=== PATIENT | female | born 1995 | race Caucasian/White ===

== ENCOUNTER 2018-08-08 20:45 | Outpatient (CLI) | payer MEDICAID | END 2018-08-08 20:46 | disposition critical access hospital (66) | LOC: EMS 20:45 | PROVIDERS: ATTEND Surgery | DX: R45.89 Other symptoms and signs involving emotional state (principal); X31.XXXA Exposure to excessive natural cold, initial encounter; Y92.413 State road as the place of occurrence of the external cause | CPT/HCPCS: A0425; A0429; A0999 ==

== ENCOUNTER 2018-08-08 21:15 | Emergency (ER) | payer MEDICAID ==
--- NOTE | 2018-08-08 21:27 | ED Physician Documentation ---
PD HPI MHE - Stated complaint Stated Complaint: SI - History obtained from History obtained from: Patient, Family, EMS - History of Present Illness Primary symptom: Suicidal ideation, Depression Timing - onset: Today Contributing factors: Other (had misscarriage and today was the due date.) Similar symptoms before: Diagnosis (depression) Recently seen: Not recently seen - Additional information Additional information: 23-year-old female went out to a spot near [facility] where she will frequently sit on a ledge to think. She went there today with the intention to jump and commit suicide. She brought some papers with her that she had written notes onto her boyfriend. She indicates that the trigger for her suicidal ideation this evening is the due date of a fetus which was miscarried. She states that she has depression she is treated for depression and that she has had suicidal ideation previously but has never acted on it. Today while she was sitting on the ledge she went to pull her boyfriend's ring off her hand and when she did this she slipped and slid down an embankment. She was unable to get back up from the embankment clawing at the dirt and [place] on the rock and breaking trees off. She was eventually helped up by the police officers. She states that now she is no longer suicidal. Review of Systems Constitutional: denies: Fever, Chills Eyes: denies: Decreased vision Ears: denies: Ear pain Nose: reports: Congestion. denies: Rhinorrhea / runny nose Throat: denies: Sore throat Cardiac: denies: Chest pain / pressure, Palpitations Respiratory: reports: Cough. denies: Dyspnea GI: denies: Abdominal Pain, Nausea, Vomiting : denies: Dysuria, Frequency Skin: denies: Rash Musculoskeletal: denies: Neck pain, Back pain, Extremity pain Neurologic: denies: Generalized weakness, Focal weakness, Numbness PD PAST MEDICAL HISTORY - Present Medications Home Medications: Ambulatory Orders Medication Instructions Recorded Confirmed Buspirone HCl 1 tab PO TID 08/09/18 08/09/18 Glipizide 1 tab PO BID 08/09/18 08/09/18 Metformin HCl 500 mg PO TID 08/09/18 08/09/18 Sertraline HCl 1 tab PO DAILY 08/09/18 08/09/18 - Allergies Allergies/Adverse Reactions: Allergies Allergy/AdvReac Type Severity Reaction Status Date / Time No Known Drug Allergies Allergy Verified 08/08/18 21:27 PD ED PE NORMAL - Vitals Vital signs reviewed: Yes (tachy and hypertensive ) - General General: Alert and oriented X 3, No acute distress, Well developed/nourished - HEENT HEENT: Atraumatic, PERRL, EOMI - Neck Neck: Supple, no meningeal sign, No bony TTP - Cardiac Cardiac: RRR, No murmur - Respiratory Respiratory: No respiratory distress, Clear bilaterally - Abdomen Abdomen: Soft, Non tender - Back Back: No CVA TTP, No spinal TTP - Derm Derm: Normal color, Warm and dry, No rash - Extremities Extremities: No deformity, No edema - Neuro Neuro: Alert and oriented X 3, jewelry sales 2-12 intact, No motor deficit, No sensory deficit, Normal speech Eye Opening: Spontaneous Motor: Obeys Commands Verbal: Oriented GCS Score: 15 - Psych Psych: Other (mood is anxious and the affect is flat ) Results - Vitals Vitals: Oxygen O2 Source Room air - Labs Labs: Microbiology 08/08/18 21:30 Urine Culture - Preliminary Urine,Clean Catch Laboratory Tests 08/08/18 08/08/18 08/08/18 21:30 21:30 21:30 WBC 8.7 RBC 5.29 Hgb 12.7 Hct 38.7 MCV 73.1 L MCH 24.0 L MCHC 32.8 RDW 15.1 H Plt Count 226 MPV 9.7 Neut # (Auto) 5.7 Lymph # (Auto) 2.1 [place] # (Auto) 0.7 Eos # (Auto) 0.1 Baso # (Auto) 0.0 Absolute Nucleated RBC 0.01 Nucleated RBC % 0.2 Sodium 134 L Potassium 3.8 Chloride 102 Carbon Dioxide 21 Anion Gap 11.0 BUN 13 Creatinine 0.5 Estimated GFR (MDRD) 150 Glucose 243 H Calcium 9.1 Total Bilirubin < 0.2 L AST 41 ALT 45 Alkaline Phosphatase 65 Troponin I < 0.04 Total Protein 8.2 Albumin 3.9 Globulin 4.3 H Albumin/Globulin Ratio 0.9 L Lipase 25 Urine Color Urine Clarity Urine pH Ur Specific [place] Urine Protein Urine Glucose (UA) Urine Ketones Urine Occult Blood Urine Nitrite Urine Bilirubin Urine Urobilinogen Ur Leukocyte Esterase Urine RBC Urine WBC Ur Squamous Epith Cells Urine Bacteria Urine Casts Ur Microscopic Review Urine Culture Comments Urine HCG, Qual Salicylates < 6.0 Urine Opiates Screen Ur Oxycodone Screen Urine Methadone Screen Ur Propoxyphene Screen Acetaminophen < 10 L Ur Barbiturates Screen Ur Tricyclics Screen Ur Phencyclidine Scrn Ur Amphetamine Screen U Methamphetamines Scrn U Benzodiazepines Scrn Urine Cocaine Screen U Cannabinoids Screen Ethyl Alcohol < 5.0 08/08/18 08/08/18 21:30 21:30 WBC RBC Hgb Hct MCV MCH MCHC RDW Plt Count MPV Neut # (Auto) Lymph # (Auto) Edwards # (Auto) Eos # (Auto) Baso # (Auto) Absolute Nucleated RBC Nucleated RBC % Sodium Potassium Chloride Carbon Dioxide Anion Gap BUN Creatinine Estimated GFR (MDRD) Glucose Calcium Total Bilirubin AST ALT Alkaline Phosphatase Troponin I Total Protein Albumin Globulin Albumin/Globulin Ratio Lipase Urine Color YELLOW Urine Clarity HAZY Urine pH 6.5 Ur Specific [place] 1.025 Urine Protein 100 H Urine Glucose (UA) 250 H Urine Ketones TRACE Urine Occult Blood NEGATIVE Urine Nitrite POSITIVE H Urine Bilirubin NEGATIVE Urine Urobilinogen 0.2 (NORMAL) Ur Leukocyte Esterase NEGATIVE Urine RBC 0-5 Urine WBC 0-3 Ur Squamous Epith Cells RARE Squamous Urine Bacteria Many H Urine Casts 3-5 Hyaline Casts Ur Microscopic Review INDICATED Urine Culture Comments INDICATED Urine HCG, Qual NEGATIVE Salicylates Urine Opiates Screen NEGATIVE Ur Oxycodone Screen NEGATIVE Urine Methadone Screen NEGATIVE Ur Propoxyphene Screen NEGATIVE Acetaminophen Ur Barbiturates Screen NEGATIVE Ur Tricyclics Screen NEGATIVE Ur Phencyclidine Scrn NEGATIVE Ur Amphetamine Screen NEGATIVE U Methamphetamines Scrn NEGATIVE U Benzodiazepines Scrn NEGATIVE Urine Cocaine Screen NEGATIVE U Cannabinoids Screen POSITIVE H Ethyl Alcohol PD MEDICAL DECISION MAKING - ED course Complexity details: reviewed results, re-evaluated patient, considered differential, d/w patient, d/w family ED course: 23-year-old female with a history of depression and acute suicidal ideation today revolving around a due date of a miscarriage fetus. On arrival to the emergency department the patient appears anxious and she is remorseful and relieved. She did struggle to try to crawl back up an embankment that she had slid down and while she was doing this she had the realization that she did not want to commit suicide. We did invoke tele-psych and the reporting psychiatrist recommends hospitalization. The patient adamantly believe she does not need to be in the hospital and wants to go home. We did discuss cooperation and evaluation by the geriatric social work professor in the morning with the possibility of parviz for safety. The patient was mostly concerned that an involuntary treatment would result in some permanent consequences for her. She will not require involuntary treatment ulness she becomes uncooperative. Departure - Departure Disposition: 01 Home, Self Care Clinical Impression: Suicidal ideation Depression Qualifiers: Depression Type: major depressive disorder Major depression recurrence: recurrent Active/Remission status: currently active Major depression episode severity: moderate Qualified Code(s): F33.1 - Major depressive disorder, recurrent, moderate Condition: Stable Instructions: ED Depression Comments: Follow-up with your primary care and with counseling at the direction of the geriatric social work professor. Continue usual medications. Discharge Date/Time: 08/09/18 11:43
[2018-08-08 21:41] LABS: BASOPHILS % (AUTO) 0.5 %; EOSINOPHILS # (AUTO) 0.1 10^3/uL (0.0-0.7); EOSINOPHILS % (AUTO) 1.2 %; HGB - HEMOGLOBIN 12.7 g/dL (12.0-16.0); LYMPHOCYTES # (AUTO) 2.1 10^3/uL (1.5-3.5); LYMPHOCYTES % (AUTO) 24.2 %; MEAN CORPUSCULAR HGB CONC 32.8 g/dL (32.0-36.0); MEAN CORPUSCULAR VOLUME 73.1 fL (81.0-99.0); MEAN PLATELET VOLUME 9.7 fL (7.9-10.8); MONOCYTES # (AUTO) 0.7 10^3/uL (0.0-1.0); MONOCYTES % (AUTO) 8.3 %; MUDS CUTOFF CONCENTRATIONS CUTOFF CONC BELOW:; NEUTROPHILS # (AUTO) 5.7 10^3/uL (1.5-6.6); NEUTROPHILS % (AUTO) 65.8 %; PLT - PLATELET COUNT 226 10^3/uL (130-450); RED BLOOD COUNT 5.29 10^6/uL (4.20-5.40); RED CELL DISTRIBUTION WIDTH 15.1 % (12.0-15.0); WHITE BLOOD COUNT 8.7 x10^3/uL (4.8-10.8)
[2018-08-08 21:47] LABS: BILIRUBIN,URINE NEGATIVE (NEGATIVE); CLARITY,URINE HAZY (CLEAR); GLUCOSE, URINE (UA) 250 mg/dL (NEGATIVE); KETONES,URINE (UA) TRACE mg/dL (NEGATIVE); LEUKOCYTE ESTERASE, URINE NEGATIVE (NEGATIVE); NITRITE,URINE POSITIVE (NEGATIVE); OCCULT BLOOD,URINE NEGATIVE (NEGATIVE); PH,URINE 6.5 PH (5.0-7.5); PROTEIN,URINE 100 mg/dL (NEGATIVE); UROBILINOGEN,URINE 0.2 (NORMAL) E.U./dL (NORMAL)
[2018-08-08 21:49] LABS: HCG UR QUAL NEGATIVE
[2018-08-08 22:03] LABS: AMPHETAMINE SCREEN,URINE NEGATIVE (NEGATIVE); BENZODIAZEPINES SCREEN, URINE NEGATIVE (NEGATIVE); COCAINE SCREEN URINE NEGATIVE (NEGATIVE); METHADONE SCREEN, URINE NEGATIVE (NEGATIVE); METHAMPHETAMINES SCREEN, URINE NEGATIVE (NEGATIVE); OPIATE SCREEN, URINE NEGATIVE (NEGATIVE); OXYCODONE SCREEN, URINE NEGATIVE (NEGATIVE); PROPOXYPHENE SCREEN, URINE NEGATIVE (NEGATIVE); TRICYCLIC ANTIDEPRESSANT,URINE NEGATIVE (NEGATIVE)
[2018-08-08 22:17] LABS: ACETAMINOPHEN < 10 ug/mL (10-30); ALBUMIN 3.9 g/dL (3.2-5.5); ALBUMIN/GLOBULIN RATIO 0.9 (1.0-2.2); ALKALINE PHOSPHATASE 65 IU/L (42-121); ALT ALANINE AMINOTRANSFERASE 45 IU/L (10-60); AST ASPARTATE AMINOTRANSFERASE 41 IU/L (10-42); BILIRUBIN,TOTAL < 0.2 mg/dL (0.2-1.0); BUN - BLOOD UREA NITROGEN 13 mg/dL (6-20); CALCIUM 9.1 mg/dL (8.5-10.3); CARBON DIOXIDE - CO2 21 mmol/L (21-32); CHLORIDE 102 mmol/L (101-111); CREATININE 0.5 mg/dL (0.4-1.0); GFR - MDRD 150 (>89); GLUCOSE 243 mg/dL (70-100); LIPASE 25 U/L (22-51); SALICYLATE < 6.0 mg/dL; SODIUM 134 mmol/L (135-145); TOTAL PROTEIN 8.2 g/dL (6.7-8.2)
[2018-08-08 22:19] LABS: BACTERIA,URINE Many /HPF (None Seen); CASTS, URINE 3-5 Hyaline Casts /LPF; RBC,URINE 0-5 /HPF (0-5); SQUAMOUS EPITHELIAL CELL,UR RARE Squamous (<= Few)
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
[2018-08-09] MEDS ORDERED: glipiZIDE 5 MG TABLET PO STA ×2 (04:04→10:52)
[2018-08-09] MEDS ORDERED: metFORMIN 500 MG TABLET PO STA ×2 (04:05→10:50)
[2018-08-09] MEDS ORDERED: BENZONATATE 100 MG CAPSULE PO STA (04:05)
[2018-08-09 04:49] VITALS: BP 130/60
[2018-08-09] MEDS ORDERED: busPIRone 5 MG TABLET PO STA ×3 (05:35→10:53)
[2018-08-09] MEDS ORDERED: busPIRone 5 MG TABLET PO ONE (06:06)
--- NOTE | 2018-08-09 09:16 | ED Physician Documentation ---
ED Addendum - Addendum Addendum: 08/09/18 09:15 There were 2 consultations for social work on this chart. 1 of them is correct. The one was inadvertently placed intended for another patient. Please disregard the notations about heroin and meth abuse as this does not refer to this patient. Social work is looking at counseling and close follow-up for the patient in lieu of hospitalization and will review the plan prior to disposition.
[2018-08-09] MEDS ORDERED: IBUPROFEN 400 MG TABLET PO STA (10:31)
[2018-08-09] MEDS ORDERED: SERTRALINE 50 MG TABLET PO STA (10:52)
== END 2018-08-09 11:43 | disposition home or self-care (01) ==
LOC: EDUNIT# → ED 21:15
DX: R45.851 Suicidal ideations (principal); F33.1 Major depressive disorder, recurrent, moderate; E11.9 Type 2 diabetes mellitus without complications; Z81.8 Family history of other mental and behavioral disorders
CPT/HCPCS: 36415; 80053; 80306; 80307; 80320; 80329; 81001; 81025; 83690; 84484; 85025; 87077; 87086; 87181; 99284; A9270; G0425; Q3014; 81003

== ENCOUNTER 2018-09-04 11:22 | Outpatient (CLI) | payer MEDICAID ==
[2018-09-04 19:18] LABS: BASOPHILS % (AUTO) 0.3 %; EOSINOPHILS # (AUTO) 0.2 10^3/uL (0.0-0.7); EOSINOPHILS % (AUTO) 2.2 %; HGB - HEMOGLOBIN 12.3 g/dL (12.0-16.0); LYMPHOCYTES # (AUTO) 3.2 10^3/uL (1.5-3.5); LYMPHOCYTES % (AUTO) 30.2 %; MEAN CORPUSCULAR HGB CONC 31.9 g/dL (32.0-36.0); MEAN CORPUSCULAR VOLUME 75.1 fL (81.0-99.0); MEAN PLATELET VOLUME 10.6 fL (7.9-10.8); MONOCYTES # (AUTO) 0.5 10^3/uL (0.0-1.0); MONOCYTES % (AUTO) 4.9 %; NEUTROPHILS # (AUTO) 6.7 10^3/uL (1.5-6.6); NEUTROPHILS % (AUTO) 62.4 %; PLT - PLATELET COUNT 237 10^3/uL (130-450); RED BLOOD COUNT 5.12 10^6/uL (4.20-5.40); RED CELL DISTRIBUTION WIDTH 15.6 % (12.0-15.0); WHITE BLOOD COUNT 10.7 x10^3/uL (4.8-10.8)
[2018-09-04 19:32] LABS: ALBUMIN 3.8 g/dL (3.2-5.5); ALKALINE PHOSPHATASE 58 IU/L (42-121); ALT ALANINE AMINOTRANSFERASE 47 IU/L (10-60); AST ASPARTATE AMINOTRANSFERASE 35 IU/L (10-42); BILIRUBIN,TOTAL 0.4 mg/dL (0.2-1.0); BUN - BLOOD UREA NITROGEN 16 mg/dL (6-20); CARBON DIOXIDE - CO2 23 mmol/L (21-32); CHLORIDE 99 mmol/L (101-111); CHOL/HDL RATIO 4.2 (<4.4); CHOLESTEROL 184 mg/dL; CREATININE 0.3 mg/dL (0.4-1.0); GFR - MDRD 271 (>89); GLUCOSE 292 mg/dL (70-100); HDL CHOLESTEROL 44 mg/dL; LDL CHOLESTEROL,CALCULATED 84 mg/dL; LDL/HDL RATIO 1.9 (<4.4); SODIUM 131 mmol/L (135-145); TOTAL PROTEIN 7.7 g/dL (6.7-8.2); VLDL CHOLESTEROL 56 mg/dL
[2018-09-04 19:37] LABS: HB2 TOTAL 13.2 g/dL; HEMOGLOBIN A1C 1.28 g/dL
[2018-09-04 19:43] LABS: THYROID STIMULATING HORMONE 2.15 uIU/mL (0.34-5.60)
[2018-09-04 19:47] LABS: CREATININE,URINE 63.7 mg/dL; MICROALBUMIN,URINE 2.1 mg/dL (0-300.0)
[2018-09-04 19:53] LABS: FOLATE 10.96 ng/mL (5.90 - >24.8)
== END 2018-09-04 23:59 | disposition home or self-care (01) ==
LOC: LAB.N 11:22
PROVIDERS: ATTEND Nurse Practitioner
DX: E55.9 Vitamin D deficiency, unspecified (principal); R53.83 Other fatigue
CPT/HCPCS: 36415; 80050; 80061; 82043; 82306; 82570; 82607; 82746; 83036; 83721

== ENCOUNTER 2018-11-11 22:39 | Emergency (ER) | payer MEDICAID ==
[2018-11-12 00:29] LABS: BASOPHILS # (AUTO) 0.1 10^3/uL (0.0-0.1); BASOPHILS % (AUTO) 0.7 %; EOSINOPHILS # (AUTO) 0.2 10^3/uL (0.0-0.7); EOSINOPHILS % (AUTO) 1.4 %; LYMPHOCYTES # (AUTO) 4.1 10^3/uL (1.5-3.5); LYMPHOCYTES % (AUTO) 33.5 %; MEAN CORPUSCULAR HEMOGLOBIN 24.1 pg (27.0-31.0); MEAN CORPUSCULAR HGB CONC 32.1 g/dL (32.0-36.0); MEAN PLATELET VOLUME 9.6 fL (7.9-10.8); MONOCYTES # (AUTO) 0.5 10^3/uL (0.0-1.0); MONOCYTES % (AUTO) 4.1 %; NEUTROPHILS # (AUTO) 7.4 10^3/uL (1.5-6.6); NEUTROPHILS % (AUTO) 60.3 %; PLT - PLATELET COUNT 342 10^3/uL (130-450); RED BLOOD COUNT 5.39 10^6/uL (4.20-5.40); RED CELL DISTRIBUTION WIDTH 14.8 % (12.0-15.0); WHITE BLOOD COUNT 12.3 x10^3/uL (4.8-10.8)
[2018-11-12 00:40] LABS: ALBUMIN/GLOBULIN RATIO 0.9 (1.0-2.2); BILIRUBIN,TOTAL 0.5 mg/dL (0.2-1.0); CREATININE 0.5 mg/dL (0.4-1.0); TOTAL PROTEIN 8.3 g/dL (6.7-8.2)
[2018-11-12 01:21] LABS: BILIRUBIN,URINE NEGATIVE (NEGATIVE); GLUCOSE, URINE (UA) NEGATIVE (NEGATIVE); KETONES,URINE (UA) TRACE mg/dL (NEGATIVE); LEUKOCYTE ESTERASE, URINE NEGATIVE (NEGATIVE); NITRITE,URINE NEGATIVE (NEGATIVE); OCCULT BLOOD,URINE NEGATIVE (NEGATIVE); PH,URINE 6.5 PH (5.0-7.5); PROTEIN,URINE 30 mg/dL (NEGATIVE); UROBILINOGEN,URINE 0.2 (NORMAL) E.U./dL (NORMAL)
[2018-11-12 01:23] LABS: CLARITY,URINE CLEAR (CLEAR); HCG UR QUAL NEGATIVE
[2018-11-12 01:38] LABS: BACTERIA,URINE Rare /HPF (None Seen); RBC,URINE None Seen /HPF (0-5); SQUAMOUS EPITHELIAL CELL,UR FEW Squamous (<= Few)
[2018-11-12] MEDS ORDERED: cefUROXime axetil 250 MG TABLET PO STA (01:48)
[2018-11-12] MEDS ORDERED: MAG HYDROX/AL HYDROX/SIMETH 30 ML UDC PO STA (02:30)
[2018-11-12] MEDS ORDERED: LIDOCAINE VISCOUS 2% 15 ML UDC MM STA (02:30)
--- NOTE | 2018-11-12 02:31 | ED Physician Documentation ---
PD HPI ABD PAIN - Stated complaint Stated Complaint: ABD PX/NAUSEA - Chief complaint Chief Complaint: Abd Pain - History obtained from History obtained from: Patient - History of Present Illness Timing - onset: Today Timing - duration: Hours Timing - details: Abrupt onset, Still present Quality: Sharp, Pain Location: RUQ, Epigastric Improved by: Laying still, Vomiting Worsened by: Moving, Breathing, Position, Palpation Associated symptoms: Nausea, Vomiting Similar symptoms before: No diagnosis Recently seen: Not recently seen - Additional information Additional information: Previously well 23-year-old female has developed acute right upper quadrant abdominal pain after eating pizza today. She states that the pain is been severe and is lasted most of the day today and she is come in for evaluation. She states that previously she has had episodes of this pain that have resolved in several hours. Review of Systems Constitutional: denies: Fever Eyes: denies: Decreased vision Ears: denies: Ear pain Nose: denies: Congestion Throat: denies: Sore throat Cardiac: denies: Chest pain / pressure Respiratory: denies: Dyspnea, Cough GI: reports: Abdominal Pain, Nausea, Vomiting : denies: Dysuria, Frequency PD PAST MEDICAL HISTORY - Past Medical History Past Medical History: Yes Respiratory: Sleep apnea Endocrine/Autoimmune: Type 2 diabetes GI: Cholelithiasis PHYSICIAN VICE PRESIDENT: None : None Psych: Depression, Anxiety Musculoskeletal: None Derm: Eczema - Past Surgical History Past Surgical History: No - Present Medications Home Medications: Ambulatory Orders Medication Instructions Recorded Confirmed Buspirone HCl 1 tab PO TID 08/09/18 08/09/18 Glipizide 1 tab PO BID 08/09/18 08/09/18 Metformin HCl 500 mg PO TID 08/09/18 08/09/18 Sertraline HCl 1 tab PO DAILY 08/09/18 08/09/18 - Allergies Allergies/Adverse Reactions: Allergies Allergy/AdvReac Type Severity Reaction Status Date / Time No Known Drug Allergies Allergy Verified 11/11/18 22:51 - Social History Does the pt smoke?: No Smoking Status: Never smoker Does the pt drink ETOH?: Yes ETOH Use: Liquor Does the pt have substance abuse?: No Substance Use and Type: Marijuana - Immunizations Immunizations are current?: No Immunizations: TDAP current <10years - POLST Patient has POLST: No PD ED PE NORMAL - Vitals Vital signs reviewed: Yes (tachy and hypertensive ) - General General: Alert and oriented X 3, No acute distress, Well developed/nourished - HEENT HEENT: Atraumatic, PERRL, EOMI - Neck Neck: Supple, no meningeal sign - Cardiac Cardiac: RRR, No murmur - Respiratory Respiratory: No respiratory distress, Clear bilaterally - Abdomen Abdomen: Soft, Other (mild RUQ tenderness with epigastric tenderness worse. ) - Back Back: No CVA TTP, No spinal TTP - Derm Derm: Normal color, Warm and dry, No rash - Extremities Extremities: No deformity, No edema - Neuro Neuro: Alert and oriented X 3, cigarette lighter repairer 2-12 intact, No motor deficit, No sensory deficit, Normal speech Eye Opening: Spontaneous Motor: Obeys Commands Verbal: Oriented GCS Score: 15 - Psych Psych: Normal mood, Normal affect Results - Vitals Vitals: Vital Signs - 24 hr 11/11/18 11/12/18 11/12/18 22:45 00:51 02:51 Temperature 36.5 C 36.4 C L Heart Rate 102 H 98 101 H Respiratory 18 22 18 Rate Blood Pressure 146/100 H 141/98 H 139/96 H O2 Saturation 98 96 97 11/12/18 03:44 Temperature Heart Rate 80 Respiratory 18 Rate Blood Pressure 137/88 H O2 Saturation 99 Oxygen O2 Source Room air - Labs Labs: Laboratory Tests 11/12/18 11/12/18 11/12/18 00:25 00:25 01:15 WBC 12.3 H RBC 5.39 Hgb 13.0 Hct 40.4 MCV 75.0 L MCH 24.1 L MCHC 32.1 RDW 14.8 Plt Count 342 MPV 9.6 Neut # (Auto) 7.4 H Lymph # (Auto) 4.1 H [place] # (Auto) 0.5 Eos # (Auto) 0.2 Baso # (Auto) 0.1 Absolute Nucleated RBC 0.00 Nucleated RBC % 0.0 Sodium 137 Potassium 3.9 Chloride 99 L Carbon Dioxide 22 Anion Gap 16.0 H BUN 13 Creatinine 0.5 Estimated GFR (MDRD) 150 Glucose 214 H Calcium 10.0 Total Bilirubin 0.5 AST 45 H ALT 60 Alkaline Phosphatase 57 Total Protein 8.3 H Albumin 4.0 Globulin 4.3 H Albumin/Globulin Ratio 0.9 L Lipase 24 Urine Color YELLOW Urine Clarity CLEAR Urine pH 6.5 Ur Specific [place] 1.020 Urine Protein 30 H Urine Glucose (UA) NEGATIVE Urine Ketones TRACE Urine Occult Blood NEGATIVE Urine Nitrite NEGATIVE Urine Bilirubin NEGATIVE Urine Urobilinogen 0.2 (NORMAL) Ur Leukocyte Esterase NEGATIVE Urine RBC None Seen Urine WBC 0-3 Ur Squamous Epith Cells FEW Squamous Urine Bacteria Rare Ur Microscopic Review INDICATED Urine Culture Comments NOT INDICATED Urine HCG, Qual NEGATIVE PD MEDICAL DECISION MAKING - ED course Complexity details: reviewed old records, reviewed results, re-evaluated patient, considered differential, d/w patient ED course: 23-year-old female with epigastric pain I am not able to image her gallbladder with bedside ultrasound and she does not seem to have much in the way of pain associated with this examination. She does have epigastric pain and she is administered a GI cocktail consisting of 10 mL's of viscous lidocaine and 30 mils of Mylanta with prompt and complete relief of her pain. She is diagnosed with gastritis and instructed to use acid reducing medications and follow-up with her primary. Departure - Departure Disposition: 01 Home, Self Care Clinical Impression: Gastritis Qualifiers: Gastritis type: unspecified gastritis Chronicity: acute Gastritis bleeding: without bleeding Qualified Code(s): K29.00 - Acute gastritis without bleeding Condition: Stable Instructions: ED PUD Vs Gastritis Follow-Up: [facility] [Provider Group] Comments: Today it appears your stomach was a source of your pain and my recommendation is for you to begin taking a medication to reduce the acid in your stomach on a regular basis. Take Pepcid AC or Nexium. These are available [id number]. In addition talk to your primary care provider about a gallbladder ultrasound. Discharge Date/Time: 11/12/18 03:45
[2018-11-12 03:45] VITALS: BP 137/88
== END 2018-11-12 03:45 | disposition home or self-care (01) ==
LOC: ED 22:39
DX: K29.00 Acute gastritis without bleeding (principal); E11.9 Type 2 diabetes mellitus without complications; Z79.84 Long term (current) use of oral hypoglycemic drugs
CPT/HCPCS: 36415; 80053; 81001; 81025; 83690; 85025; 99283; A9270; 81003; 87086

== ENCOUNTER 2022-04-17 06:49 | Emergency (ER) | payer MEDICAID ==
[2022-04-17] MEDS ORDERED: SODIUM CHLORIDE 0.9% 1,000 ML IV STA ×2 (08:07→11:13)
[2022-04-17] MEDS ORDERED: KETOROLAC 30 MG/ML VIAL IVP STA ×2 (08:16→11:17)
[2022-04-17] MEDS ORDERED: ACETAMINOPHEN 325 MG TABLET PO STA (08:16)
--- NOTE | 2022-04-17 08:21 | ED Physician Documentation ---
History of Present Illness - Stated complaint Stated Complaint: ABD/NECK/CHEST PX - Chief complaint Chief Complaint: Cardiac - History obtained from History obtained from: Patient - Additonal information Additional information: Patient comes to the emergency department with chief complaint of upper abdominal pain and flank pain bilaterally for the last couple of weeks. However, the patient states is gotten a lot worse over the last 8 hours and she is not sleeping laying in bed. She states she feels as though she has a fever although she has not measured 1. No chills. No nausea or vomiting. She states she has a little dysuria. The patient states she is otherwise fairly healthy. No abdominal issues or prior surgeries. She states she does not think she is because she just finished her period. Review of Systems Ten Systems: 10 systems reviewed and negative Constitutional: reports: Reviewed and negative Eyes: reports: Reviewed and negative Ears: reports: Reviewed and negative Nose: reports: Reviewed and negative Throat: reports: Reviewed and negative Cardiac: reports: Reviewed and negative Respiratory: reports: Reviewed and negative GI: reports: Abdominal Pain : reports: Dysuria Skin: reports: Reviewed and negative Musculoskeletal: reports: Reviewed and negative Neurologic: reports: Headache Psychiatric: reports: Reviewed and negative Endocrine: reports: Reviewed and negative Immunocompromised: reports: Reviewed and negative PD PAST MEDICAL HISTORY - Past Medical History Respiratory: Sleep apnea Endocrine/Autoimmune: Type 2 diabetes GI: Cholelithiasis EMERGENCY MANAGEMENT SPECIALIST: None : None Psych: Depression, Anxiety Musculoskeletal: None Derm: Eczema - Past Surgical History Past Surgical History: No - Present Medications Home Medications: Ambulatory Orders Medication Instructions Recorded Confirmed Metformin HCl 500 mg PO TID 08/09/18 04/18/22 glipiZIDE [Glipizide] 1 tab PO BID 08/09/18 04/18/22 levoFLOXacin [Levaquin] 500 mg PO QD #28 tablet 04/17/22 04/18/22 - Allergies Allergies/Adverse Reactions: Allergies Allergy/AdvReac Type Severity Reaction Status Date / Time No Known Drug Allergies Allergy Verified 04/18/22 08:04 - Social History Does the pt smoke?: No Smoking Status: Never smoker Does the pt drink ETOH?: Yes Does the pt have substance abuse?: No - Immunizations Immunizations are current?: No Immunizations: TDAP current <10years - POLST Patient has POLST: No PD ED PE NORMAL - Vitals Vital signs reviewed: Yes - General General: Alert and oriented X 3, Well developed/nourished, Other (The patient is not in distress but does appear uncomfortable.) - HEENT HEENT: Atraumatic, PERRL, EOMI - Cardiac Cardiac: RRR, No murmur - Respiratory Respiratory: No respiratory distress, Clear bilaterally - Abdomen Abdomen: Soft, Non distended, Other (Moderate epigastric tenderness, no rebound or guarding. Bilateral flank tenderness, moderate) - Back Back: Other (CVA tenderness bilaterally left greater than right) - Derm Derm: Normal color, Warm and dry, No rash - Extremities Extremities: No deformity, No edema, No calf tenderness / cord - Neuro Neuro: Alert and oriented X 3, Other (Moderate epigastric tenderness, no rebound or guarding. Bilateral flank tenderness, moderate) - Psych Psych: Normal mood, Normal affect Results - Vitals Vitals: Oxygen O2 Source Room air - EKG (time done) 0701 Rate: Rate (enter#) (125) Rhythm: Sinus tachycardia [place]: Normal Intervals: Normal KS QRS: Normal Ischemia: Normal ST segments Compare to prior EKG: Old EKG unavailable Computer interpretation: Agree with computer - Labs Labs: Microbiology 04/17/22 11:50 Blood Culture - Final Blood - Left Arm Escherichia Coli 04/17/22 11:28 Blood Culture - Final Blood - Left Arm Escherichia Coli 04/17/22 11:50 Blood Culture (PCR) - Final Blood - Left Arm Laboratory Tests 04/17/22 04/17/22 04/17/22 08:23 08:26 08:26 WBC 21.1 H RBC 4.86 Hgb 12.1 Hct 37.7 MCV 77.6 L MCH 24.9 L MCHC 32.1 RDW 14.7 Plt Count 216 MPV 11.7 H Neut # (Auto) 19.3 H Lymph # (Auto) 0.[address] [place] # (Auto) 0.9 Eos # (Auto) 0.0 Baso # (Auto) 0.1 Absolute Nucleated RBC 0.00 Band Neuts % (Manual) AESTHETICIAN Abnorm Lymph % (Manual) AESTHETICIAN Nucleated RBC % 0.0 Neutrophils # (Manual) Not Reportable Lymphocytes # (Manual) AESTHETICIAN Monocytes # (Manual) AESTHETICIAN Eosinophils # (Manual) AESTHETICIAN Basophils # (Manual) AESTHETICIAN Differential Comment MANUAL=AUTO DIFF Manual Slide Review Indicated Platelet Estimate NORMAL (130-450,000) Platelet Morphology NORMAL APPEARANCE RBC Morph Micro Appear NORMAL APPEARANCE D-Dimer Sodium 133 L Potassium 3.9 Chloride 97 L Carbon Dioxide 25 Anion Gap 11.0 BUN 13 Creatinine 1.0 Estimated GFR (MDRD) 66 L Glucose 238 H Lactic Acid Calcium 8.7 Total Bilirubin 1.7 H AST 28 ALT 47 Alkaline Phosphatase 170 H Total Protein 6.9 Albumin 2.8 L Globulin 4.1 Albumin/Globulin Ratio 0.7 L Lipase 21 L Urine Color YELLOW Urine Clarity SL. CLOUDY Urine pH 6.0 Ur Specific [place] 1.015 Urine Protein 100 H Urine Glucose (UA) NEGATIVE Urine Ketones NEGATIVE Urine Occult Blood LARGE H Urine Nitrite POSITIVE H Urine Bilirubin NEGATIVE Urine Urobilinogen >=8.0 H Ur Leukocyte Esterase MODERATE H Urine RBC 6-10 H Urine WBC >25 H Ur Epithelial Cells Ur Squamous Epith Cells MOD Squamous H Urine Bacteria Few Ur Microscopic Review INDICATED Urine Culture Comments NOT INDICATED Urine HCG, Qual NEGATIVE Nasal Adenovirus (PCR) Nasal B. parapertussis DNA (PCR) Nasal Coronavir 229E PCR Nasal Coronavir HKU1 PCR Nasal Coronavir NL63 PCR Nasal Coronavir OC43 PCR Nasal Enterovir/Rhinovir PCR Nasal Influenza B PCR Nasal Influenza A PCR Nasal Parainfluen 1 PCR Nasal Parainfluen 2 PCR Nasal Parainfluen 3 PCR Nasal Parainfluen 4 PCR Nasal RSV (PCR) Nasal B.pertussis DNA PCR Nasal C.pneumoniae (PCR) [place] Human Metapneumo PCR Nasal M.pneumoniae (PCR) Nasal SARS-CoV-2 (PCR) 04/17/22 04/17/22 04/17/22 08:26 09:25 11:28 WBC RBC Hgb Hct MCV MCH MCHC RDW Plt Count MPV Neut # (Auto) Lymph # (Auto) [place] # (Auto) Eos # (Auto) Baso # (Auto) Absolute Nucleated RBC Band Neuts % (Manual) Abnorm Lymph % (Manual) Nucleated RBC % Neutrophils # (Manual) Lymphocytes # (Manual) Monocytes # (Manual) Eosinophils # (Manual) Basophils # (Manual) Differential Comment Manual Slide Review Platelet Estimate Platelet Morphology RBC Morph Micro Appear D-Dimer 769.9 H Sodium Potassium Chloride Carbon Dioxide Anion Gap BUN Creatinine Estimated GFR (MDRD) Glucose Lactic Acid 1.2 Calcium Total Bilirubin AST ALT Alkaline Phosphatase Total Protein Albumin Globulin Albumin/Globulin Ratio Lipase Urine Color Urine Clarity Urine pH Ur Specific [place] Urine Protein Urine Glucose (UA) Urine Ketones Urine Occult Blood Urine Nitrite Urine Bilirubin Urine Urobilinogen Ur Leukocyte Esterase Urine RBC Urine WBC Ur Epithelial Cells Ur Squamous Epith Cells Urine Bacteria Ur Microscopic Review Urine Culture Comments Urine HCG, Qual Nasal Adenovirus (PCR) NOT DETECTED Nasal B. parapertussis DNA (PCR) NOT DETECTED Nasal Coronavir 229E PCR NOT DETECTED Nasal Coronavir HKU1 PCR NOT DETECTED Nasal Coronavir NL63 PCR NOT DETECTED Nasal Coronavir OC43 PCR NOT DETECTED Nasal Enterovir/Rhinovir PCR DETECTED A Nasal Influenza B PCR NOT DETECTED Nasal Influenza A PCR NOT DETECTED Nasal Parainfluen 1 PCR NOT DETECTED Nasal Parainfluen 2 PCR NOT DETECTED Nasal Parainfluen 3 PCR NOT DETECTED Nasal Parainfluen 4 PCR NOT DETECTED Nasal RSV (PCR) NOT DETECTED Nasal B.pertussis DNA PCR NOT DETECTED Nasal C.pneumoniae (PCR) NOT DETECTED [place] Human Metapneumo PCR NOT DETECTED Nasal M.pneumoniae (PCR) NOT DETECTED Nasal SARS-CoV-2 (PCR) NOT DETECTED PD MEDICAL DECISION MAKING - ED course Complexity details: reviewed results, re-evaluated patient, considered differential, d/w patient ED course: The patient was given IV fluids and worked up with labs, urinalysis, respiratory PCR, chest x-ray, and EKG. The pt was found to have pyelonephritis, and treated with abx for this. She was also found later to be positive for rhin ovirus. THe pt was feeling much better, and I felt she was stable for d/c home. We have discussed symptomatic management, as well as the usual indications for return. Departure - Departure Disposition: 01 Home, Self Care Clinical Impression: Pyelonephritis Condition: Stable Instructions: ED Kidney Infec Female, ED Viral Syndrome Prescriptions: levoFLOXacin [Levaquin] 500 mg PO QD #28 tablet Comments: Your urinalysis was strongly positive for infection and additionally, you were positive for rhinovirus, one of the many upper respiratory viruses that is going around right now. Both of these can make you feel quite ill, but where is the viral infection will go away on its own, the kidney infection does require antibiotic treatment. You have been started on this in the emergency department. A prescription for further antibiotics has been electronically transmitted to [facility] pharmacy in [place] for you. Please be sure that you drink plenty of fluids, preferably 8 to 10 cups of water each day. Please also get plenty of rest and stay home from work until you are feeling better. Please follow-up with your primary care physician for any further concerns. If you begin to feel significantly worse, then please return to the emergency department for reevaluation. Discharge Date/Time: 04/17/22 14:40
[2022-04-17 08:33] LABS: BASOPHILS # (AUTO) 0.1 10^3/uL (0.0-0.1); BASOPHILS % (AUTO) 0.3 %; HCT - HEMATOCRIT 37.7 % (37.0-47.0); HGB - HEMOGLOBIN 12.1 g/dL (12.0-16.0); LYMPHOCYTES # (AUTO) 0.5 10^3/uL (1.5-3.5); LYMPHOCYTES % (AUTO) 2.6 %; MEAN CORPUSCULAR HEMOGLOBIN 24.9 pg (27.0-31.0); MEAN CORPUSCULAR HGB CONC 32.1 g/dL (32.0-36.0); MEAN CORPUSCULAR VOLUME 77.6 fL (81.0-99.0); MEAN PLATELET VOLUME 11.7 fL (7.9-10.8); MONOCYTES # (AUTO) 0.9 10^3/uL (0.0-1.0); MONOCYTES % (AUTO) 4.3 %; NEUTROPHILS # (AUTO) 19.3 10^3/uL (1.5-6.6); NEUTROPHILS % (AUTO) 91.9 %; PLT - PLATELET COUNT 216 10^3/uL (130-450); RED BLOOD COUNT 4.86 10^6/uL (4.20-5.40); RED CELL DISTRIBUTION WIDTH 14.7 % (12.0-15.0); WHITE BLOOD COUNT 21.1 x10^3/uL (4.8-10.8)
[2022-04-17 08:54] LABS: ALBUMIN 2.8 g/dL (3.2-5.5); ALBUMIN/GLOBULIN RATIO 0.7 (1.0-2.2); BILIRUBIN,TOTAL 1.7 mg/dL (0.2-1.0); CALCIUM 8.7 mg/dL (8.5-10.3); POTASSIUM 3.9 mmol/L (3.5-5.0); TOTAL PROTEIN 6.9 g/dL (6.7-8.2)
[2022-04-17 08:56] LABS: PLATELET ESTIMATE, MANUAL NORMAL (130-450,000) (NORMAL); PLATELET MORPHOLOGY NORMAL APPEARANCE (NORMAL); RBC MORPHOLOGY (MULTIPLE) NORMAL APPEARANCE (NORMAL)
[2022-04-17 08:57] LABS: SLIDE REVIEW? Indicated
[2022-04-17 09:03] LABS: DIFFERENTIAL COMMENT MANUAL=AUTO DIFF
[2022-04-17 09:15] LABS: GLUCOSE, URINE (UA) NEGATIVE (NEGATIVE); KETONES,URINE (UA) NEGATIVE (NEGATIVE); LEUKOCYTE ESTERASE, URINE MODERATE (NEGATIVE); NITRITE,URINE POSITIVE (NEGATIVE); OCCULT BLOOD,URINE LARGE (NEGATIVE); PROTEIN,URINE 100 mg/dL (NEGATIVE); UROBILINOGEN,URINE >=8.0 E.U./dL (NORMAL)
[2022-04-17 09:37] LABS: CLARITY,URINE SL. CLOUDY (CLEAR)
[2022-04-17 09:39] LABS: BILIRUBIN,URINE NEGATIVE (NEGATIVE); HCG UR QUAL NEGATIVE; ICTOTEST,URINE NEGATIVE
[2022-04-17 09:42] LABS: SQUAMOUS EPITHELIAL CELL,UR MOD Squamous (<= Few); WBC,URINE >25 /HPF (0-5)
[2022-04-17 09:43] LABS: BACTERIA,URINE Few /HPF (None Seen)
[2022-04-17 10:26] LABS: B. PARAPERTUSSIS- RESP PCR PAN NOT DETECTED; B. PERTUSSIS- RESP PCR PANEL NOT DETECTED; C. PNEUMONIAE- RESP PCR PANEL NOT DETECTED; CORONAVIRUS 229E-RESP PCR NOT DETECTED; CORONAVIRUS HKU1-RESP PCR NOT DETECTED; CORONAVIRUS NL63-RESP PCR NOT DETECTED; CORONAVIRUS OC43-RESP PCR NOT DETECTED; HUMAN METAPNEUMOVIRUS NOT DETECTED; INFLUENZA A- RESP PCR PANEL NOT DETECTED; INFLUENZA B - RESP PCR PANEL NOT DETECTED; M. PNEUMONIAE- RESP PCR PANEL NOT DETECTED; PARAINFLUENZA VIRUS 1 NOT DETECTED; PARAINFLUENZA VIRUS 2 NOT DETECTED; PARAINFLUENZA VIRUS 3 NOT DETECTED; PARAINFLUENZA VIRUS 4 NOT DETECTED; RHINOVIRUS/ENTEROVIRUS DETECTED; RSV- RESP PCR PANEL NOT DETECTED; SARS-CoV-2 -RESP PCR PANEL NOT DETECTED
--- NOTE | 2022-04-17 10:51 | XRAY Report ---
PROCEDURE: Chest 1 View X-Ray INDICATIONS: chest pain TECHNIQUE: One view of the chest was acquired. COMPARISON: None. FINDINGS: Surgical changes and devices: None. Lungs and pleura: No pleural effusions or pneumothorax. Lungs are clear. Mediastinum: Mediastinal contours appear normal. Heart size is normal. Bones and chest wall: No suspicious bony lesions. Overlying soft tissues appear unremarkable. IMPRESSION: No evidence acute pulmonary process. Reviewed by: Camilo Deutsch MD on 04/17/2022 10:50 AM [facility] Approved by: Camilo Deutsch MD on 04/17/2022 10:50 AM [facility] Station ID: [id number]
[2022-04-17] MEDS ORDERED: cefTRIAXone 2 GM in SODIUM CHLORIDE 0.9% MINIBAG 100 ML IV STA (11:06)
[2022-04-17] MEDS ORDERED: HYDROmorphone 1 MG/ML CARPUJECT IVP STA (11:17)
[2022-04-17] MEDS ORDERED: ONDANSETRON 4 MG/2 ML VIAL IVP STA (11:17)
[2022-04-17] MEDS ORDERED: iohexoL-300 100 ML VIAL ONE (11:24)
--- NOTE | 2022-04-17 13:39 | CT Report ---
PROCEDURE: ANGIO CHEST W/WO INDICATIONS: tachy/elev d-dimer CONTRAST: 80mL Omni 300 TECHNIQUE: After the administration of intravenous contrast, 2 mm axial images were acquired from the pulmonary apices to the posterior costophrenic angles during the arterial phase. In addition, 1 mm lung kernel and 5 mm soft tissue kernel reconstructions were performed. 3-dimensional coronal oblique maximum int ensity projection (MIP) reformats, 8 mm axial MIP, and 5 mm coronal and sagittal MPR reformats were t hen performed through the thorax. For radiation dose reduction, the following was used: automated exp osure control, adjustment of mA and/or kV according to patient size. COMPARISON: None FINDINGS: Image quality: Excellent. Pulmonary arteries: Pulmonary arteries are normal in size, and demonstrate no intraluminal filling d efects to suggest central pulmonary embolism. Lungs and pleura: Lungs are clear. Punctate calcified granuloma, right upper lobe. No pleural effus ions or pneumothorax. Central and peripheral airways are patent. Mediastinum: Heart size is normal, without pericardial effusion. No mediastinal or hilar adenopathy . Thoracic aorta is normal in caliber and enhancement. Esophagus is normal in caliber, without hiat al hernia. Bones and chest wall: No suspicious bony lesions. Ribs and thoracic spine appear intact throughout. No axillary or supraclavicular adenopathy. Visualized portions of the thyroid are unremarkable. Abdomen: Visualized upper abdominal solid organs appear normal in the early arterial phase of enhanc ement. IMPRESSION: 1. No evidence of acute pulmonary emboli. 2. No evidence of acute pulmonary process. CLINICAL RECOMMENDATION STATEMENTS: In patients <35 years with an ITN detected on CT, MRI, or extrathyroidal ultrasound, the Committee re commends further evaluation with dedicated thyroid ultrasound if the nodule is "e1 cm and has no susp icious imaging features, and if the patient has normal life expectancy. In patients "e35 years with an ITN detected on CT, MRI, or extrathyroidal ultrasound, the Committee r ecommends further evaluation with dedicated thyroid ultrasound if the nodule is "e1.5 cm and has no s uspicious imaging features, and if the patient has normal life expectancy. (ACR, 2014) Reviewed by: Camilo Deutsch MD on 04/17/2022 1:38 PM PST Approved by: Camilo Deutsch MD on 04/17/2022 1:38 PM PST Station ID: [id number]
--- NOTE | 2022-04-17 13:43 | CT Report ---
PROCEDURE: ABDOMEN/PELVIS W INDICATIONS: abd pain/leukocytosis/tachy CONTRAST: 80mL Omni 300 TECHNIQUE: After the administration of intravenous contrast, 5 mm thick sections acquired from the diaphragms to the symphysis. 5 mm thick coronal and sagittal reformats were acquired. For radiation dose reducti on, the following was used: automated exposure control, adjustment of mA and/or kV according to thais ent size. COMPARISON: None. FINDINGS: Image quality: Excellent. ABDOMEN: Lung bases: Lung bases are clear. Heart size is normal. Solid organs: Liver and spleen are normal in size and enhancement. Gallbladder is unremarkable with out calcified gallstones. Biliary system is non dilated. Pancreas enhances normally. No adrenal no dules. Bilateral kidneys are edematous, with perinephric stranding bilaterally. Consider possible ann marie ateral acute pyelonephritis. However, there is no striated nephrogram. Peritoneum and bowel: Bowel loops demonstrate normal wall thickness and caliber. No free fluid or a ir. Nodes and vessels: No retroperitoneal or mesenteric adenopathy by size criteria. Aorta and inferior vena cava are normal in size. Miscellaneous: No ventral hernias. PELVIS: Genitourinary: Mild diffuse bladder wall thickening, suggesting possible cystitis. Miscellaneous: No inguinal hernias or adenopathy. Bones: No suspicious bony lesions. No vertebral body compression fractures. IMPRESSION: 1. Mild diffuse wall thickening of the bladder. Consider cystitis. 2. Bilateral edematous appearance of the kidneys with perinephric stranding. Consider bilateral acute pyelonephritis. Comment: Recommend correlation with urine and physical exam. Reviewed by: Camilo Deutsch MD on 04/17/2022 1:41 PM PST Approved by: Camilo Deutsch MD on 04/17/2022 1:41 PM PST Station ID: [id number]
[2022-04-17 14:09] VITALS: BP 118/61
[2022-04-17] MEDS ORDERED: iohexoL-300 100 ML VIAL IVP ONE (18:37)
== END 2022-04-17 14:40 | disposition home or self-care (01) ==
LOC: ED 06:49
DX: N12 Tubulo-interstitial nephritis, not specified as acute or chronic (principal); J06.9 Acute upper respiratory infection, unspecified; B97.89 Other viral agents as the cause of diseases classified elsewhere; R00.0 Tachycardia, unspecified; E11.9 Type 2 diabetes mellitus without complications; Z79.84 Long term (current) use of oral hypoglycemic drugs
CPT/HCPCS: 36415; 71045; 71275; 74177; 80053; 81001; 81025; 83605; 83690; 85025; 85379; 87040; 87150; 87181; 87633; 93005; 96361; 96365; 96375; 96376; 99282; 99284; A9270; J1170; Q9967; 81003; 87086

== ENCOUNTER 2022-04-18 06:54 | Inpatient (IN) | payer MEDICARE, MEDICAID ==
[~2022-04-18 06:54] MED LIST: KETOROLAC 30 MG/ML VIAL ONE; cefTRIAXone 1 GM VIAL ONE
[2022-04-18 07:11] LABS: ALBUMIN 2.1 g/dL (3.2-5.5); ALBUMIN/GLOBULIN RATIO 0.6 (1.0-2.2); BASOPHILS % (AUTO) 0.4 %; BILIRUBIN,TOTAL 1.3 mg/dL (0.2-1.0); CALCIUM 7.3 mg/dL (8.5-10.3); EOSINOPHILS % (AUTO) 0.3 %; HCT - HEMATOCRIT 31.4 % (37.0-47.0); HGB - HEMOGLOBIN 10.2 g/dL (12.0-16.0); LYMPHOCYTES % (AUTO) 2.6 %; MEAN CORPUSCULAR HEMOGLOBIN 24.8 pg (27.0-31.0); MEAN CORPUSCULAR HGB CONC 32.5 g/dL (32.0-36.0); MEAN CORPUSCULAR VOLUME 76.4 fL (81.0-99.0); MEAN PLATELET VOLUME 12.2 fL (7.9-10.8); MONOCYTES % (AUTO) 6.9 %; NEUTROPHILS % (AUTO) 88.5 %; PLT - PLATELET COUNT 179 10^3/uL (130-450); POTASSIUM 3.5 mmol/L (3.5-5.0); RED BLOOD COUNT 4.11 10^6/uL (4.20-5.40); RED CELL DISTRIBUTION WIDTH 14.9 % (12.0-15.0); TOTAL PROTEIN 5.5 g/dL (6.7-8.2); WHITE BLOOD COUNT 23.2 x10^3/uL (4.8-10.8)
[2022-04-18 07:12] LABS: ABNORMAL LYMPHS % (MANUAL) 0 %
[2022-04-18 07:30] LABS: BAND NEUTROPHILS % (MANUAL) 14 %; DIFFERENTIAL COMMENT MANUAL DIFFERENTIAL; LYMPHOCYTES # (MANUAL) 1.2 10^3/uL (1.5-3.5); LYMPHOCYTES % (MANUAL) 5 %; MONOCYTES # (MANUAL) 0.9 10^3/uL (0.0-1.0); NEUTROPHILS # (MANUAL) 21.1 10^3/uL (1.5-6.6); PLATELET ESTIMATE, MANUAL NORMAL (130-450,000) (NORMAL); PLATELET MORPHOLOGY 1+ LARGE PLATELETS (NORMAL); RBC MORPHOLOGY (MULTIPLE) NORMAL APPEARANCE (NORMAL)
[2022-04-18] MEDS ORDERED: SODIUM CHLORIDE 0.9% 1,000 ML IV STA ×2 (07:53→07:55)
[2022-04-18] MEDS ORDERED: KETOROLAC 15 MG/ML VIAL IVP STA (09:24)
[2022-04-18] MEDS ORDERED: HYDROmorphone 0.5 MG/0.5 ML SYRINGE IVP STA (09:24)
[2022-04-18] MEDS ORDERED: ONDANSETRON 4 MG/2 ML VIAL IVP STA (09:24)
--- NOTE | 2022-04-18 09:25 | ED Physician Documentation ---
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: None : None Psych: Depression, Anxiety Musculoskeletal: None Derm: Eczema - Past Surgical History Past Surgical History: No - Present Medications Home Medications: Ambulatory Orders Medication Instructions Recorded Confirmed Buspirone HCl 1 tab PO TID 08/09/18 04/18/22 Metformin HCl 500 mg PO TID 08/09/18 04/18/22 Sertraline HCl 1 tab PO DAILY 08/09/18 04/18/22 glipiZIDE [Glipizide] 1 tab PO BID 08/09/18 04/18/22 levoFLOXacin [Levaquin] 500 mg PO QD #28 tablet 04/17/22 04/18/22 - Allergies Allergies/Adverse Reactions: Allergies Allergy/AdvReac Type Severity Reaction Status Date / Time No Known Drug Allergies Allergy Verified 04/18/22 08:04 - Social History Does the pt smoke?: No Smoking Status: Never smoker Does the pt drink ETOH?: Yes Does the pt have substance abuse?: No - Immunizations Immunizations are current?: No Immunizations: TDAP current <10years - POLST Patient has POLST: No Results - Vitals Vitals: Vital Signs - 24 hr 04/18/22 04/18/22 04/18/22 08:00 08:04 09:03 Temperature 36.9 C 36.4 C L Heart Rate 103 H 126 H 104 H Respiratory 16 17 16 Rate Blood Pressure 94/51 L 110/63 94/74 O2 Saturation 100 97 99 Oxygen O2 Source Room air - Labs Labs: Laboratory Tests 04/18/22 04/18/22 04/18/22 05:45 05:45 06:30 WBC 23.2 H RBC 4.11 L Hgb 10.2 L Hct 31.4 L MCV 76.4 L MCH 24.8 L MCHC 32.5 RDW 14.9 Plt Count 179 MPV 12.2 H Neut # (Auto) Not Reportable Lymph # (Auto) Not Reportable [place] # (Auto) Not Reportable Eos # (Auto) Not Reportable Baso # (Auto) Not Reportable Absolute Nucleated RBC Not Reportable Total Counted 100 Band Neuts % (Manual) 14 H Abnorm Lymph % (Manual) 0 Nucleated RBC % Not Reportable Neutrophils # (Manual) 21.1 H Lymphocytes # (Manual) 1.2 L Monocytes # (Manual) 0.9 Eosinophils # (Manual) 0.0 Basophils # (Manual) 0.0 Differential Comment MANUAL DIFFERENTIAL Platelet Estimate NORMAL (130-450,000) Platelet Morphology 1+ LARGE PLATELETS RBC Morph Micro Appear NORMAL APPEARANCE Sodium 136 Potassium 3.5 Chloride 104 Carbon Dioxide 21 Anion Gap 11.0 BUN 17 Creatinine 1.0 Estimated GFR (MDRD) 66 L Glucose 99 Lactic Acid 1.7 Calcium 7.3 L Total Bilirubin 1.3 H AST 14 ALT 33 Alkaline Phosphatase 140 H Total Protein 5.5 L Albumin 2.1 L Globulin 3.4 Albumin/Globulin Ratio 0.6 L Lipase 19 L PD MEDICAL DECISION MAKING - ED course ED course: [facility]OW[facility]. PLEASE SEE PAPER CHART. Care of patient turned over to Dr. Hare at end of my shift, test results still pending
[2022-04-18] MEDS ORDERED: PROCHLORPERAZINE 10 MG/2 ML VIAL IVP PRN (10:23)
[2022-04-18] MEDS ORDERED: SODIUM CHLORIDE FLUSH 0.9% 10 ML SYRINGE IVP PRN (10:23)
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
[2022-04-18] MEDS: levoFLOXacin 750 MG/150 ML 750 MG/150 ML BAG IV SCH (12:14)
[2022-04-18] MEDS: SODIUM CHLORIDE 0.9% 1,000 ML IV SCH ×2 (12:15→22:51)
--- NOTE | 2022-04-18 12:27 | ED Physician Documentation ---
ED Addendum - Addendum Addendum: 04/18/22 12:24 The patient is seen on change of shift. She is still having some nausea and back and abdominal pain. She continues with IV fluids. She had been seen here just yesterday with kidney infection and has positive blood cultures and worsening symptoms. Clearly has criteria for hospitalization and she is agreeable. We gave additional fluids. She had received antibiotics IV appropriately. I ordered some more antiemetic and pain medicines. I talked with the hospitalist Dr. Ocampo who is agreeable to place the patient in the hospital for further care. Disposition: The patient is admitted to the hospital in stable condition Diagnoses: 1. Acute pyelonephritis 2. E. coli bacteremia 3. sepsis markers.
--- NOTE | 2022-04-18 14:03 | PHARMACY PROGRESS NOTE ---
- Best Possible Medication History Admit Date and Time: 04/18/22 1023 Processed by: Nursing Medication History completed: Yes As the person ultimately responsible for medication therapy, providers are able to order a medication from an existing home medication list in [facility] via the "Reconcile Routine" prior to Confirmation of that medication by mission support specialist. Such practice is discouraged except when the physician, in their clinical judgment, deems that a medical need exists for a medication without regard to previous use.
[2022-04-18] MEDS: oxyCODONE 5 MG TABLET PO PRN (14:20)
[2022-04-18] MEDS: ONDANSETRON ODT 4 MG TABLET TL PRN (14:20)
[2022-04-18] MEDS: ACETAMINOPHEN 325 MG TABLET PO PRN ×2 (16:23→21:04)
[2022-04-18] MEDS: SODIUM CHLORIDE FLUSH 0.9% 10 ML SYRINGE IVP SCH (17:19)
[2022-04-18] MEDS: DOCUSATE SODIUM 250 MG CAPSULE PO SCH (18:34)
[2022-04-18] MEDS: polyethylene glycoL 3350 17 GM PACKET PO SCH (21:03)
[2022-04-18] MEDS: INSULIN LISPRO 300 UNIT/3 ML PEN SUBQ SCH (21:03)
[2022-04-18] MEDS: ONDANSETRON 4 MG/2 ML VIAL IVP PRN (21:04)
[2022-04-19] MEDS: HYDROmorphone 0.5 MG/0.5 ML SYRINGE IVP PRN ×3 (00:57→09:37)
[2022-04-19] MEDS: SODIUM CHLORIDE FLUSH 0.9% 10 ML SYRINGE IVP SCH ×3 (00:59→17:01)
[2022-04-19 05:52] LABS: BASOPHILS # (AUTO) 0.1 10^3/uL (0.0-0.1); BASOPHILS % (AUTO) 0.4 %; EOSINOPHILS # (AUTO) 0.1 10^3/uL (0.0-0.7); EOSINOPHILS % (AUTO) 0.6 %; HCT - HEMATOCRIT 31.1 % (37.0-47.0); HGB - HEMOGLOBIN 9.9 g/dL (12.0-16.0); LYMPHOCYTES # (AUTO) 0.9 10^3/uL (1.5-3.5); LYMPHOCYTES % (AUTO) 6.2 %; MEAN CORPUSCULAR HEMOGLOBIN 24.7 pg (27.0-31.0); MEAN CORPUSCULAR HGB CONC 31.8 g/dL (32.0-36.0); MEAN CORPUSCULAR VOLUME 77.6 fL (81.0-99.0); MEAN PLATELET VOLUME 12.2 fL (7.9-10.8); MONOCYTES % (AUTO) 6.6 %; NEUTROPHILS # (AUTO) 12.3 10^3/uL (1.5-6.6); NEUTROPHILS % (AUTO) 84.6 %; PLT - PLATELET COUNT 192 10^3/uL (130-450); RED BLOOD COUNT 4.01 10^6/uL (4.20-5.40); RED CELL DISTRIBUTION WIDTH 15.4 % (12.0-15.0); WHITE BLOOD COUNT 14.6 x10^3/uL (4.8-10.8)
[2022-04-19 06:04] LABS: CALCIUM 7.8 mg/dL (8.5-10.3); CREATININE 0.9 mg/dL (0.4-1.0); POTASSIUM 4.1 mmol/L (3.5-5.0)
[2022-04-19] MEDS: DOCUSATE SODIUM 250 MG CAPSULE PO SCH (08:42)
[2022-04-19] MEDS: polyethylene glycoL 3350 17 GM PACKET PO SCH (08:42)
[2022-04-19] MEDS: SODIUM CHLORIDE 0.9% 1,000 ML IV SCH (09:37)
[2022-04-19] MEDS: INSULIN LISPRO 300 UNIT/3 ML PEN SUBQ SCH ×4 (09:39→21:53)
[2022-04-19] MEDS: levoFLOXacin 750 MG/150 ML 750 MG/150 ML BAG IV SCH (11:11)
[2022-04-19] MEDS: ONDANSETRON 4 MG/2 ML VIAL IVP PRN (11:12)
--- NOTE | 2022-04-19 11:26 | PROVIDER PROGRESS NOTE ---
Subjective - Prog Note Date Prog Note Date: 04/19/22 Prog Note Time: 11:24 - Subjective Pt reports feeling: Improved Subjective: Sera is still very lethargic with a flat affect. Every time I enter the room the blinds are drawn, the lights are off and she is laying down. It seems as though i'm looking at a very depressed person, however her infection seems to be responding. She says she is not in pain. Current Medications - Current Medications Current Medications: Active Medications Acetaminophen (Acetaminophen 325 Mg Tablet) 650 mg PO Q4HR PRN PRN Reason: Pain 1 to 4, or Fever Last Admin: 04/18/22 16:23 Dose: 650 mg Docusate Sodium (Docusate Sodium 250 Mg Capsule) 250 - 500 mg PO DAILY [facility] Last Admin: 04/19/22 08:42 Dose: 250 mg Hydromorphone HCl (Hydromorphone 0.5 Mg/0.5 Ml Syringe) 0.5 mg IVP Q2H PRN PRN Reason: Pain 8 to 10 Last Admin: 04/19/22 09:37 Dose: 0.5 mg Sodium Chloride (Normal Saline 0.9%) 1,000 mls @ 100 mls/hr IV .Q10H [facility] Stop: 04/19/22 16:59 Last Admin: 04/19/22 09:37 Dose: 100 mls/hr Levofloxacin (Levaquin 750 Mg/150 Ml) 750 mg in 150 mls @ 100 mls/hr IV Q24H [facility] Last Admin: 04/19/22 11:11 Dose: 100 mls/hr Insulin Human Lispro (Insulin Lispro 300 Unit/3 Ml Pen) 1 - 9 unit SUBQ 0800,1200,1700,2100 [facility]; Protocol Last Admin: 04/19/22 09:39 Dose: Not Given Ondansetron HCl (Ondansetron Odt 4 Mg Tablet) 4 mg TL Q6HR PRN PRN Reason: Nausea / Vomiting Last Admin: 04/18/22 14:20 Dose: 4 mg Ondansetron HCl (Ondansetron 4 Mg/2 Ml Vial) 4 mg IVP Q6HR PRN PRN Reason: Nausea / Vomiting Last Admin: 04/19/22 11:12 Dose: 4 mg Oxycodone HCl (Oxycodone 5 Mg Tablet) 5 mg PO Q4HR PRN PRN Reason: Pain 5 to 7 Last Admin: 04/18/22 14:20 Dose: 5 mg Polyethylene Glycol (Polyethylene Glycol 3350 17 Gm Packet) 17 gm PO DAILY [facility] Last Admin: 04/19/22 08:42 Dose: 17 gm Prochlorperazine Edisylate (Prochlorperazine 10 Mg/2 Ml Vial) 10 mg IVP Q6HR PRN PRN Reason: Nausea / Vomiting Sodium Chloride (Sodium Chloride Flush 0.9% 10 Ml Syringe) 10 ml IVP PRN PRN PRN Reason: NEEDED PER PROVIDER ORDERS Sodium Chloride (Sodium Chloride Flush 0.9% 10 Ml Syringe) 10 ml IVP 0100,0900,1700 [facility] Last Admin: 04/19/22 06:04 Dose: 10 ml Metformin HCl 500 mg PO TID 08/09/18 glipiZIDE [Glipizide] 1 tab PO BID 08/09/18 Objective - Vital Signs/Intake & Output Vital Signs: Vital Signs x48h Temp Pulse Resp BP Pulse Ox 04/19/22 08:00 36.9 C 108 H 18 115/61 95 Intake & Output: Intake & Output 04/16/22 04/17/22 04/18/22 04/19/22 23:59 23:59 23:59 23:59 Intake Total 4310 1200 Balance 4310 1200 - Objective General Appearance: positive: No acute distress, Lethargic Eyes Bilateral: positive: Normal inspection, PERRL, EOMI ENT: positive: No signs of dehydration Neck: positive: No JVD. negative: Stiff neck Respiratory: positive: No respiratory distress, Breath sounds nml Cardiovascular: positive: Regular rate & rhythm Abdomen: positive: Non-tender, No organomegaly, Nml bowel sounds, No distention Back: positive: CVA tenderness (R), CVA tenderness (L) Skin: positive: Warm, Dry Extremities: positive: Full ROM Neurologic/Psychiatric: positive: Oriented x3, CN's nml (2-12), Depressed mood/affect - Lab Results Fish Bones: 04/19/22 05:31 04/19/22 05:31 Other Labs: Lab Results x24hrs 04/19/22 04/19/22 04/19/22 Range/Units 07:40 05:31 05:31 WBC 14.6 H (4.8-10.8) x10^3/uL RBC 4.01 L (4.20-5.40) 10^6/uL Hgb 9.9 L (12.0-16.0) g/dL Hct 31.1 L (37.0-47.0) % MCV 77.6 L (81.0-99.0) fL MCH 24.7 L (27.0-31.0) pg MCHC 31.8 L (32.0-36.0) g/dL RDW 15.4 H (12.0-15.0) % Plt Count 192 (130-450) 10^3/uL MPV 12.2 H (7.9-10.8) fL Neut # (Auto) 12.3 H (1.5-6.6) 10^3/uL Lymph # (Auto) 0.9 L (1.5-3.5) 10^3/uL [place] # (Auto) 1.0 (0.0-1.0) 10^3/uL Eos # (Auto) 0.1 (0.0-0.7) 10^3/uL Baso # (Auto) 0.1 (0.0-0.1) 10^3/uL Absolute Nucleated RBC 0.00 x10^3/uL Nucleated RBC % 0.0 /100WBC Sodium 137 (135-145) mmol/L Potassium 4.1 (3.5-5.0) mmol/L Chloride 105 (101-111) mmol/L Carbon Dioxide 23 (21-32) mmol/L Anion Gap 9.0 (6-13) BUN 19 (6-20) mg/dL Creatinine 0.9 (0.4-1.0) mg/dL Estimated GFR (MDRD) 75 L (>89) Glucose 114 H (70-100) mg/dL POC Whole Bld Glucose 97 (70 - 100) mg/dL Calcium 7.8 L (8.5-10.3) mg/dL 04/18/ Range/Units 20:43 WBC (4.8-10.8) x10^3/uL RBC (4.20-5.40) 10^6/uL Hgb (12.0-16.0) g/dL Hct (37.0-47.0) % MCV (81.0-99.0) fL MCH (27.0-31.0) pg MCHC (32.0-36.0) g/dL RDW (12.0-15.0) % Plt Count (130-450) 10^3/uL MPV (7.9-10.8) fL Neut # (Auto) (1.5-6.6) 10^3/uL Lymph # (Auto) (1.5-3.5) 10^3/uL [place] # (Auto) (0.0-1.0) 10^3/uL Eos # (Auto) (0.0-0.7) 10^3/uL Baso # (Auto) (0.0-0.1) 10^3/uL Absolute Nucleated RBC x10^3/uL Nucleated RBC % /100WBC Sodium (135-145) mmol/L Potassium (3.5-5.0) mmol/L Chloride (101-111) mmol/L Carbon Dioxide (21-32) mmol/L Anion Gap (6-13) BUN (6-20) mg/dL Creatinine (0.4-1.0) mg/dL Estimated GFR (MDRD) (>89) Glucose (70-100) mg/dL POC Whole Bld Glucose 152 H (70 - 100) mg/dL Calcium (8.5-10.3) mg/dL Sepsis Event Note (H) - Evaluation Current Stage of Sepsis: Sepsis Possible source of Sepsis: positive: GI tract/intra-abdominal - Sepsis Criteria Sepsis Criteria: Recorded Heart Rate greater than 90 bpm, WBC count greater than 10% bands, WBC count greater than 12,000 or less than 4000 Assessment/Plan - Problem List (1) Sepsis Impression: She meets SIRS criteria, she is still tachycardic and her WBC is elevated but is coming down. On 04/18 it was 23.2, on 04/19 it is 14.6. She is still on Levoquin IV day #2/. I will consider extending her antibiotic regimen to 14 days based on her response. Plan: Continue IV levoquin, will consider switching to PO in the future based on her improvement. Monitor O2 Monitor glucose Qualifiers: Sepsis type: Escherichia coli Sepsis acute organ dysfunction status: without acute organ dysfunction Qualified Code(s): A41.51 - Sepsis due to Escherichia coli [E. coli] (2) Bacteremia, escherichia coli Conclusion/Plan: Her blood cultures returned positive for E. coli. See plan as above. (3) Pyelonephritis Conclusion/Plan: Sera presented with two weeks of flank pain, mild dysuria and subjective fever that has suddenly become much worse over the last 24 hours. Her workup in the ED on 04/17 included CXR, and Chest CTA, and abdominal CT. Her CXR showed no evidence of acute pulmonary process. Chest CTA showed now evidence of acute pulmonary emboli or acute pulmonary process. Her Abdominal CT showed mild diffuse wall thickening of the bladder, and bilateral acute pyelonephritis. Urinalysis and urine cultures were obtained in the ED and indicated infection with E. coli. Her eGFR is improving, on 04/18, 66; 04/19, 75. Her electrolytes are within normal ranges. She has no personal history of nephrolithiasis and no family history that she is aware of. She should complete a 7-14 day total course of antibiotic therapy, starting with IV levoquin but she can switch to an oral regimen when she is clinically stable and can tolerate oral meds. Plan: Continue IV Levoquin day #2/7 IV fluids monitor BMP daily (4) Rhinovirus infection Conclusion/Plan: She started feeling sick about two weeks ago with mild congestion, body aches and general malaise. She didn't feel the need to be seen for these symptoms. Her viral panel on exam in the ED showed positive for rhinovirus. I recommend supportive care, IV fluids, and Nsaids as needed. (5) Type 2 diabetes mellitus Conclusion/Plan: She has type 2 diabetes mellitus managed with metformin and glipizide. I recommend discontinuing metformin during her stay in the hospital because of the contraindication for imaging with dye that may be needed during her stay. She can resume her metformin when she is discharged. Plan - monitor glucose - Insulin prn for BG >140 Qualifiers: Diabetes mellitus complication status: without complication (6) Depression Conclusion/Plan: She has a history of severe depression with suicidal ideation which used to be managed by Sertraline and Buspirone she says she discontinued her medications a while ago because she didn't like how they made her feel. She attempted suicide in 2019, she went to a bridge to jump off but changed her mind, slipped on the edge of the bridge and caught herself by hanging on the ledge, she was saved by the police. It was recommended by a telepsych provider to do inpatient therapy after this episode but she went against medical recommendation and went home. She uses meditation sometimes and this helps a little. She has frequent thoughts about but she denies a plan to kill herself and does not have thoughts of self harm or harm of others. I recommend she see her PCP for follow up on her depression to try and find a medication with more tolerable side effects. Qualifiers: Sepsis type: Escherichia coli Sepsis acute organ dysfunction status: without acute organ dysfunction Qualified Code(s): A41.51 - Sepsis due to Escherichia coli [E. coli]
[2022-04-19 11:41] LABS: ESTIMATED AVERAGE GLUCOSE 117 mg/dL (70-100); HEMOGLOBIN A1c% 5.7 % (4.27-6.07)
[2022-04-19] MEDS: ACETAMINOPHEN 325 MG TABLET PO PRN (13:17)
[2022-04-19] MEDS: oxyCODONE 5 MG TABLET PO PRN (16:03)
[2022-04-20] MEDS: ACETAMINOPHEN 325 MG TABLET PO PRN ×3 (00:41→20:41)
[2022-04-20] MEDS: SODIUM CHLORIDE FLUSH 0.9% 10 ML SYRINGE IVP SCH ×2 (01:20→08:55)
[2022-04-20] MEDS: oxyCODONE 5 MG TABLET PO PRN (01:39)
[2022-04-20] MEDS: ONDANSETRON ODT 4 MG TABLET TL PRN (01:41)
[2022-04-20 06:35] LABS: BASOPHILS % (AUTO) 0.7 %; EOSINOPHILS % (AUTO) 1.2 %; HCT - HEMATOCRIT 31.7 % (37.0-47.0); HGB - HEMOGLOBIN 9.8 g/dL (12.0-16.0); LYMPHOCYTES % (AUTO) 14.1 %; MEAN CORPUSCULAR HEMOGLOBIN 24.2 pg (27.0-31.0); MEAN CORPUSCULAR HGB CONC 30.9 g/dL (32.0-36.0); MEAN CORPUSCULAR VOLUME 78.3 fL (81.0-99.0); MEAN PLATELET VOLUME 12.4 fL (7.9-10.8); MONOCYTES % (AUTO) 8.8 %; NEUTROPHILS % (AUTO) 70.4 %; PLT - PLATELET COUNT 142 10^3/uL (130-450); RED BLOOD COUNT 4.05 10^6/uL (4.20-5.40); RED CELL DISTRIBUTION WIDTH 15.9 % (12.0-15.0)
[2022-04-20 06:42] LABS: CREATININE 0.9 mg/dL (0.4-1.0); POTASSIUM 4.1 mmol/L (3.5-5.0)
[2022-04-20 06:53] LABS: ABNORMAL LYMPHS % (MANUAL) 0 %; BAND NEUTROPHILS % (MANUAL) 0 %
[2022-04-20 06:54] LABS: EOSINOPHILS # (MANUAL) 0.1 10^3/uL (0-0.7); LYMPHOCYTES # (MANUAL) 1.7 10^3/uL (1.5-3.5); LYMPHOCYTES % (MANUAL) 14 %; METAMYELOCYTES % (MANUAL) 1 %; MONOCYTES # (MANUAL) 0.7 10^3/uL (0.0-1.0); MYELOCYTES % (MANUAL) 1 %; NEUTROPHILS # (MANUAL) 9.2 10^3/uL (1.5-6.6)
[2022-04-20 06:55] LABS: DIFFERENTIAL COMMENT MANUAL DIFFERENTIAL; PLATELET ESTIMATE, MANUAL NORMAL (130-450,000) (NORMAL); RBC MORPHOLOGY (MULTIPLE) NORMAL APPEARANCE (NORMAL)
[2022-04-20] MEDS: DOCUSATE SODIUM 250 MG CAPSULE PO SCH (08:55)
[2022-04-20] MEDS: polyethylene glycoL 3350 17 GM PACKET PO SCH (08:56)
[2022-04-20] MEDS: INSULIN LISPRO 300 UNIT/3 ML PEN SUBQ SCH ×4 (09:27→21:30)
[2022-04-20] MEDS: levoFLOXacin 750 MG/150 ML 750 MG/150 ML BAG IV SCH (11:33)
[2022-04-20] MEDS: HYDROmorphone 0.5 MG/0.5 ML SYRINGE IVP PRN (11:35)
--- NOTE | 2022-04-20 16:58 | PROVIDER PROGRESS NOTE ---
Progress Note April 20, 2022 4:51 PM IV fell out today. [place] through her Levaquin infusion. So we opted to stop it, and switch her over to oral antibiotics. However her temperature is 38.3. She continues to be emotionally withdrawn, anhedonic, grieving the loss of her cat that yesterday or the day before. She denies fever, chills. She jamie es pain. She has no abdominal discomfort, no urgency, no frequency. She has a chronic daily headache. Temperature is 38.6. She was 38.9 at midnight last night. Heart rate 100. Blood pressure 131/82. Respirations 21. 95% on room air. 5 foot 3 inch female who is 93 kg Withdrawn affect, but alert and oriented and states she is comfortable Neck is supple No labored respiration no increased respiratory effort and lungs are clear Regular rate and rhythm and tachycardic. On the she was up to 122. Yesterday she was 110. Today she is 110. Abdomen is soft, nontender, normal bowel sounds. Extremities are without edema BMP today is normal. CBC shows a white cell count that is 12,000. She was 23 on admission. April 17 blood culture positive for E. coli in all bottles, Urine was done April 17 but because it has moderate squamous cells, culture was not indicated. It had a large amount of blood, positive nitrites, moderate leukocyte Estrace. Assessment/plan 1. Sepsis due to UTI. Not completely clinically out of the michel. White cell count has come down but she still has intermittent fevers, and intermittent tachycardia. She is not hypoxic. She is completed 3 days of Levaquin IV with the third infusion partially extravasated. She does not want another IV. Plan: Encourage p.o. fluids Changed to Cipro 500 twice daily 2. E. coli bacteremia Antibiotics will probably be close to 10 days of combined oral and IV therapy. Today is day #3 of 7 3. Pyelonephritis. See #1. 4. Rhinovirus infection. No signs and symptoms of pneumonia. Continue supportive measures with nonsteroidals, or Tylenol. So far no severe chest congestion requiring nebulizers or Mucinex 5. Type 2 diabetes mellitus. Home medication is metformin and glipizide. Yesterday's glucose was 72 and 121 and 127. Glucose has been controlled this entire time without the use of sliding scale insulin. As such glucometer check stopped. She will resume her usual home medications at discharge. 6. Major depressive disorder with recurrence. workers' compensation mediator spent some time with her. Not on current medications. She has chronic suicidal ideation but no active plans. She will need outpatient follow-up and is encouraged to establish self with a mental health provider again.
[2022-04-20] MEDS: CIPROFLOXACIN 250 MG TABLET PO SCH (20:41)
[2022-04-21] MEDS: ACETAMINOPHEN 325 MG TABLET PO PRN ×2 (02:32→20:32)
[2022-04-21 05:31] LABS: BASOPHILS % (AUTO) 0.4 %; EOSINOPHILS % (AUTO) 1.4 %; HCT - HEMATOCRIT 29.8 % (37.0-47.0); HGB - HEMOGLOBIN 9.5 g/dL (12.0-16.0); LYMPHOCYTES % (AUTO) 13.6 %; MEAN CORPUSCULAR HEMOGLOBIN 24.2 pg (27.0-31.0); MEAN CORPUSCULAR HGB CONC 31.9 g/dL (32.0-36.0); MEAN PLATELET VOLUME 11.4 fL (7.9-10.8); MONOCYTES % (AUTO) 10.7 %; NEUTROPHILS % (AUTO) 68.3 %; PLT - PLATELET COUNT 262 10^3/uL (130-450); RED BLOOD COUNT 3.92 10^6/uL (4.20-5.40); RED CELL DISTRIBUTION WIDTH 15.6 % (12.0-15.0); WHITE BLOOD COUNT 13.1 x10^3/uL (4.8-10.8)
[2022-04-21 05:35] LABS: ABNORMAL LYMPHS % (MANUAL) 0 %
[2022-04-21 05:40] LABS: CALCIUM 7.8 mg/dL (8.5-10.3); CREATININE 0.6 mg/dL (0.4-1.0); POTASSIUM 3.5 mmol/L (3.5-5.0)
[2022-04-21 06:05] LABS: BAND NEUTROPHILS % (MANUAL) 6 %; BASOPHILS # (MANUAL) 0.1 10^3/uL (0-0.1); BASOPHILS % (MANUAL) 1 %; DIFFERENTIAL COMMENT MANUAL DIFFERENTIAL; EOSINOPHILS # (MANUAL) 0.1 10^3/uL (0-0.7); LYMPHOCYTES # (MANUAL) 1.7 10^3/uL (1.5-3.5); LYMPHOCYTES % (MANUAL) 13 %; METAMYELOCYTES % (MANUAL) 2 %; MYELOCYTES % (MANUAL) 2 %; NEUTROPHILS # (MANUAL) 9.6 10^3/uL (1.5-6.6); PLATELET ESTIMATE, MANUAL NORMAL (130-450,000) (NORMAL); RBC MORPHOLOGY (MULTIPLE) NORMAL APPEARANCE (NORMAL); WBC MORPHOLOGY (MULTIPLE) 1+ TOXIC GRANULATION (NORMAL)
[2022-04-21] MEDS: oxyCODONE 5 MG TABLET PO PRN ×2 (06:13→13:36)
[2022-04-21] MEDS: ONDANSETRON ODT 4 MG TABLET TL PRN (08:17)
[2022-04-21] MEDS: INSULIN LISPRO 300 UNIT/3 ML PEN SUBQ SCH ×4 (08:17→22:47)
[2022-04-21] MEDS: CIPROFLOXACIN 250 MG TABLET PO SCH ×2 (08:18→20:33)
[2022-04-21] MEDS: DOCUSATE SODIUM 250 MG CAPSULE PO SCH (08:18)
[2022-04-21] MEDS: polyethylene glycoL 3350 17 GM PACKET PO SCH (08:18)
--- NOTE | 2022-04-21 12:17 | PROVIDER PROGRESS NOTE ---
Progress Note April 21, 2022 12:09 PM Her IV fell out April 20. It was alf through her Levaquin infusion. So I opted to stop it, switch her over to oral antibiotics that she had her first oral dose of Cipro in the evening of April 20. She did spike a temp around 7 PM April 20. I obtained blood cultures and they have been received but not resulted. No change in overall status for her. She says that she feels better. She is getting up to go to the bathroom on her own. She is eating anywhere between bites of her food to 50% of her food. The room is continually dark. The shades are never put up. No light is let in. And she has the lights off. If there is any light in the room is from the TV. Active Medications Acetaminophen (Acetaminophen 325 Mg Tablet) 650 mg PO Q4HR PRN PRN Reason: Pain 1 to 4, or Fever Last Admin: 04/21/22 02:32 Dose: 650 mg Ciprofloxacin (Ciprofloxacin 250 Mg Tablet) 500 mg PO BID [facility] Last Admin: 04/21/22 08:18 Dose: 500 mg Docusate Sodium (Docusate Sodium 250 Mg Capsule) 250 - 500 mg PO DAILY [facility] Last Admin: 04/21/22 08:18 Dose: 250 mg Insulin Human Lispro (Insulin Lispro 300 Unit/3 Ml Pen) 1 - 9 unit SUBQ 0800,1200,1700,2100 [facility]; Protocol Last Admin: 04/21/22 08:17 Dose: Not Given Ondansetron HCl (Ondansetron Odt 4 Mg Tablet) 4 mg TL Q6HR PRN PRN Reason: Nausea / Vomiting Last Admin: 04/21/22 08:17 Dose: 4 mg Oxycodone HCl (Oxycodone 5 Mg Tablet) 5 mg PO Q4HR PRN PRN Reason: Pain 5 to 7 Last Admin: 04/21/22 06:13 Dose: 5 mg Polyethylene Glycol (Polyethylene Glycol 3350 17 Gm Packet) 17 gm PO DAILY [facility] Last Admin: 04/21/22 08:18 Dose: 17 gm Metformin HCl 500 mg PO TID 08/09/18 glipiZIDE [Glipizide] 1 tab PO BID 08/09/18 Temperature is 36.7. Heart rate 73. Blood pressure 116/79. Respirations 18. 96% on room air. 5 feet 3 inches tall. 93 kg Short statured morbidly obese female with severe anhedonia, depressed affect Neck is supple Lungs are clear. She has an unlabored, very slow, shallow respiration. Regular rate and rhythm Abdomen is soft, nontender. Normal bowel sounds. Last bowel movement was April 15. Extremities with full range of motion and no edema. Sodium 133, potassium 3.5, BUN 14, creatinine 0.6. Glucose 73 White cell count 23.2> 14.6> 12.0> 13.1 today Microbiology from April 17 ER encounter with E. coli in urine and blood CT from ER encounter April 17 with pyelonephritis and no hydro or obstruction Assessment/plan 1. Pyelonephritis. Sepsis resolved. She is status post 3 days of Levaquin IV, switched to Cipro p.o. the evening of April 20. 1 fever spike so far. If she does not have any further fever today, we will send her home with oral antibiotics so that she completes 10 to 14 days of therapy. 2. E. coli bacteremia. Today is day #4 of 10 for antibiotics. I had thought to do 7 but because of the fever spike, we will keep her on 10 days. 3. Rhinovirus infection. This is seen on positive PCR on admission but she has not had any symptoms. There has been no chest congestion, runny nose, hypoxia 4. Type 2 diabetes mellitus, controlled, without long-term use of insulin. Home medication is metformin and glipizide. Here she is on sliding scale insulin and she is needed 1 unit on the first day of her stay and has not needed any since. When she goes home she will resume her usual home medications. 5. Major depressive disorder with recurrence. Chronic suicidal ideation with no plans. Not on meds. Seen by social work. Encouraged to establish herself with a mental health provider again.
[2022-04-22] MEDS: oxyCODONE 5 MG TABLET PO PRN (02:51)
[2022-04-22 04:57] LABS: BASOPHILS % (AUTO) 0.6 %; EOSINOPHILS % (AUTO) 1.5 %; HCT - HEMATOCRIT 31.7 % (37.0-47.0); HGB - HEMOGLOBIN 10.2 g/dL (12.0-16.0); LYMPHOCYTES % (AUTO) 17.1 %; MEAN CORPUSCULAR HEMOGLOBIN 24.6 pg (27.0-31.0); MEAN CORPUSCULAR HGB CONC 32.2 g/dL (32.0-36.0); MEAN CORPUSCULAR VOLUME 76.4 fL (81.0-99.0); MEAN PLATELET VOLUME 10.4 fL (7.9-10.8); MONOCYTES % (AUTO) 8.5 %; NEUTROPHILS % (AUTO) 64.2 %; PLT - PLATELET COUNT 335 10^3/uL (130-450); RED BLOOD COUNT 4.15 10^6/uL (4.20-5.40); RED CELL DISTRIBUTION WIDTH 15.7 % (12.0-15.0); WHITE BLOOD COUNT 14.5 x10^3/uL (4.8-10.8)
[2022-04-22 05:05] LABS: ABNORMAL LYMPHS % (MANUAL) 0 %
[2022-04-22 05:12] LABS: CALCIUM 8.2 mg/dL (8.5-10.3); CREATININE 0.6 mg/dL (0.4-1.0); POTASSIUM 3.9 mmol/L (3.5-5.0)
[2022-04-22 05:48] LABS: BAND NEUTROPHILS % (MANUAL) 2 %; DIFFERENTIAL COMMENT MANUAL DIFFERENTIAL; EOSINOPHILS # (MANUAL) 0.1 10^3/uL (0-0.7); LYMPHOCYTES # (MANUAL) 2.5 10^3/uL (1.5-3.5); LYMPHOCYTES % (MANUAL) 17 %; METAMYELOCYTES % (MANUAL) 1 %; MONOCYTES # (MANUAL) 1.3 10^3/uL (0.0-1.0); MYELOCYTES % (MANUAL) 1 %; NEUTROPHILS # (MANUAL) 10.3 10^3/uL (1.5-6.6); PLATELET ESTIMATE, MANUAL NORMAL (130-450,000) (NORMAL); RBC MORPHOLOGY (MULTIPLE) NORMAL APPEARANCE (NORMAL)
[2022-04-22] MEDS: INSULIN LISPRO 300 UNIT/3 ML PEN SUBQ SCH (08:44)
[2022-04-22] MEDS: DOCUSATE SODIUM 250 MG CAPSULE PO SCH (08:44)
[2022-04-22] MEDS: CIPROFLOXACIN 250 MG TABLET PO SCH (08:44)
[2022-04-22] MEDS: polyethylene glycoL 3350 17 GM PACKET PO SCH (08:44)
--- NOTE | 2022-04-22 09:22 | Discharge Plan ---
Discharge Plan Problem Reviewed?: Yes Disposition: Home, Self Care Condition: Good Prescriptions: Ciprofloxacin [Cipro] 500 mg PO BID #38 tab Diet: Diabetic Activity Restrictions: Activity as Tolerated Shower Restrictions: No Driving Restrictions: No Health Concerns: You had come to the emergency room on April 17 and has been having upper abdominal pain and back pain. It been going off and on for 2 weeks. In the emergency room we found you to have a urinary tract infection that he got into your kidneys and was called pyelonephritis. You were sent home with Levaquin but you had come back to the emergency room because you were just feeling worse, feeling terrible, and at the same time the lab was calling to tell you that your blood cultures were now positive from your kidney infection the day before. At the time of admission your white cell count was 23,000 and you had a fever to 38.2 degrees. You had met criteria for severe infection and were being called sepsis. Plan of Treatment: You were placed on antibiotic therapy to cover the E. coli. It took many days for your fever to go down, but you were improving slowly. At the time of discharge you are alert, the most alert we have ever seen you. Your white cell count is still not as low as we would like it. It is 14,000. When you were ad mitted it was 23,000. But you have not had fever since April 20 at 4:30 in the afternoon. During your stay your glucose stayed stable. We would like you to stay on ciprofloxacin antibiotic. It is a 250 mg tablet and would like you to take 2 tablets twice a day. Please complete the bottle. Please establish yourself with a primary care provider. You will need follow-up for this kidney infection in the next 2 weeks and needed clinic to go to. While here, social work met with you to discuss your major depressive disorder. We would strongly encourage you to establish yourself with a mental health clinic and start getting regular counseling, and may be start back on medications again. Care Goals: To complete therapy for pyelonephritis and to stabilize major depressive disorder Assessment: Patient is alert, oriented, taking care of activities of daily living here in the hospital. She is felt stable to return to home. We are still worried that her white cell count is 14,000 but on exam the patient looks very stable and we are cautiously optimistic she should be able to do just fine No Smoking: If you smoke, Please STOP! Call for help.
[2022-04-22 10:49] VITALS: BP 125/76
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
== END 2022-04-22 10:25 | disposition home or self-care (01) | DRG 872 ==
LOC: ED 06:54 → MS2 10:23
PROVIDERS: ADMIT Specialist; ATTEND Specialist
DX: A41.51 Sepsis due to Escherichia coli [E. coli] (principal); R78.81 Bacteremia; N10 Acute pyelonephritis; R45.851 Suicidal ideations; F33.2 Major depressive disorder, recurrent severe without psychotic features; E11.9 Type 2 diabetes mellitus without complications; B34.8 Other viral infections of unspecified site; G47.30 Sleep apnea, unspecified; F41.9 Anxiety disorder, unspecified; F43.10 Post-traumatic stress disorder, unspecified; Z79.84 Long term (current) use of oral hypoglycemic drugs
CPT/HCPCS: 36415; 80048; 80053; 83036; 83605; 83690; 85025; 87040; 96361; 96374; 96375; 99284; 99285; A9270; J1170; Q0162

== ENCOUNTER 2022-07-15 16:12 | Emergency (ER) | payer MEDICARE, MEDICAID ==
[2022-07-15 16:18] VITALS: BP 136/87
--- NOTE | 2022-07-15 16:50 | XRAY Report ---
PROCEDURE: Hand 3 View RT INDICATIONS: Trauma TECHNIQUE: 3 views of the hand(s) acquired. COMPARISON: None FINDINGS: Bones: There is a mildly displaced fracture seen involving the base of the fifth metacarpal. No defi nite intra-articular involvement can be seen. No suspicious bony lesions. Soft tissues: No suspicious soft tissue calcifications. IMPRESSION: Mildly displaced fracture seen at the base of the fifth metacarpal. Reviewed by: Georgi Mahmood MD on 07/15/2022 3:49 PM [place] Approved by: Georgi Mahmood MD on 07/15/2022 3:49 PM [place] Station ID: [id number]
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
== END 2022-07-15 17:12 | disposition home or self-care (01) ==
LOC: ED 16:12
DX: S62.316A Displaced fracture of base of fifth metacarpal bone, right hand, initial encounter for closed fracture (principal); W22.09XA Striking against other stationary object, initial encounter; Y92.9 Unspecified place or not applicable; E11.9 Type 2 diabetes mellitus without complications; Z79.84 Long term (current) use of oral hypoglycemic drugs
CPT/HCPCS: 29125; 99283

== ENCOUNTER 2022-07-25 11:15 | Outpatient (CLI) | payer MEDICARE, MEDICAID ==
--- NOTE | 2022-07-25 14:28 | XRAY Report ---
PROCEDURE: Hand 3 View RT INDICATIONS: RIGHT HAND PAIN TECHNIQUE: 4 views of the hand(s) acquired. COMPARISON: 07/15/2022 FINDINGS: Bones: Redemonstration of mildly displaced fracture involving the base of the fifth metacarpal. No de finite intra-articular extension. No evidence to suggest significant periosteal reaction or bridging callus formation. No suspicious bony lesions. Soft tissues: No suspicious soft tissue calcifications. Soft tissue swelling persists overlying the ulnar aspect of the right hand. IMPRESSION: Stable alignment of mildly displaced fracture involving the base of the right fifth metacarpal. No si gnificant periosteal reaction or bridging callus formation identified at this time. Reviewed by: Mati Alberto MD on 07/25/2022 2:27 PM PST Approved by: Mati Alberto MD on 07/25/2022 2:27 PM PST Station ID: [id number]
== END 2022-07-25 11:27 | disposition home or self-care (01) ==
LOC: DI.WOS 11:15
PROVIDERS: ATTEND Physician Assistant Surgical
DX: S62.316D Displaced fracture of base of fifth metacarpal bone, right hand, subsequent encounter for fracture with routine healing (principal)

== ENCOUNTER 2022-08-15 08:00 | Outpatient (CLI) | payer MEDICARE, MEDICAID ==
--- NOTE | 2022-08-16 11:33 | XRAY Report ---
PROCEDURE: Hand 3 View RT INDICATIONS: RIGHT 5TH MC FRACTURE TECHNIQUE: 3 views of the hand(s) acquired. COMPARISON: 07/17/2022 FINDINGS: Bones: A 2 part fracture of the fifth metacarpal base is more apparent than prior imaging, with incre ased lucency and periosteal reaction. No dislocation. Soft tissues: No suspicious calcifications. IMPRESSION: Increased conspicuity of a two-part fifth metacarpal base fracture, with increased lucency and perios teal reaction. The lucency may represent bony resorption as a process of fracture healing, although a component of increased displacement is also possible. Follow-up is recommended. Reviewed by: Edwin Tillman MD on 08/16/2022 11:32 AM PDT Approved by: Edwin Tillman MD on 08/16/2022 11:32 AM PDT Station ID: [id number]
== END 2022-08-15 23:59 | disposition home or self-care (01) ==
LOC: DI.WOS 08:00
PROVIDERS: ATTEND Physician Assistant Surgical
DX: S62.316A Displaced fracture of base of fifth metacarpal bone, right hand, initial encounter for closed fracture (principal)

== ENCOUNTER 2023-05-03 20:07 | Emergency (ER) | payer MEDICARE, MEDICAID ==
[2023-05-03 20:18] VITALS: BP 138/88
[2023-05-03] MEDS ORDERED: CHERRY SYRUP 10 ML UDC PO ONE (20:26)
[2023-05-03] MEDS ORDERED: DEXAMETHASONE 10 MG/ML VIAL PO STA (20:26)
[2023-05-03] MEDS ORDERED: LIDOCAINE VISCOUS 2% 15 ML UDC MM STA (20:26)
[2023-05-03] MEDS ORDERED: KETOROLAC 30 MG/ML VIAL IM STA (20:27)
[2023-05-03 20:41] LABS: RAPID STREP SCREEN POSITIVE (Negative)
--- NOTE | 2023-05-03 20:54 | ED Physician Documentation ---
History of Present Illness - Stated complaint Stated Complaint: SORE THROAT - Chief complaint Chief Complaint: Heent - History obtained from History obtained from: Patient - Additonal information Additional information: 27yF with pmh diet controlled diabetes p/w sore throat X 4 days without cough or fever. also with neck pain and enlarged lymph nodes. patient has hx strep throat in the past. denies cough, cp, soa, vomiting. 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) : None Psych: Depression, Anxiety, Post traumatic stress disorder, Other Musculoskeletal: None Derm: Eczema - Past Surgical History Past Surgical History: No - Present Medications Home Medications: Ambulatory Orders Medication Instructions Recorded Confirmed Metformin HCl 500 mg PO TID 08/09/18 04/18/22 glipiZIDE [Glipizide] 1 tab PO BID 08/09/18 04/18/22 Ciprofloxacin [Cipro] 500 mg PO BID #38 tab 04/22/22 Amoxicillin 875 mg PO BID #20 tablet 05/03/23 - Allergies Allergies/Adverse Reactions: Allergies Allergy/AdvReac Type Severity Reaction Status Date / Time No Known Drug Allergies Allergy Verified 05/03/23 20:09 - Social History Does the pt smoke?: No Smoking Status: Never smoker Does the pt drink ETOH?: Yes Does the pt have substance abuse?: No - Immunizations Immunizations are current?: No Immunizations: TDAP current <10years - POLST Patient has POLST: No POLST Status: Full Code PD ED PE NORMAL - Vitals Vital signs reviewed: Yes - General General: Alert and oriented X 3, No acute distress, Well developed/nourished - HEENT HEENT: Atraumatic, PERRL, EOMI, Moist mucous membranes, Other (BL tonsillar enlargement and erythema with white exudates) - Neck Neck: Supple, no meningeal sign, Other (BL anterior cervical LAD) Results - Vitals Vitals: Vital Signs - 24 hr 05/03/23 20:09 Temperature 37.1 C Heart Rate 125 H Respiratory 16 Rate Blood Pressure 138/88 H O2 Saturation 100 Oxygen O2 Source Room air - Labs Labs: Laboratory Tests 05/03/23 20:15 Group A Strep Rapid POSITIVE H PD Medical Decision Making - ED course ED course: 27yF presents with strep throat, treated with decadron and antibiotics. Improvement in pain with IM toradol and gargled lidocaine. Rx sent to pharmacy. return precautions given. plan to f/u with pcp. Departure - Departure Disposition: 01 Home, Self Care Clinical Impression: Strep throat Condition: Stable Instructions: ED Strep Pharyngitis Conf Prescriptions: Amoxicillin 875 mg PO BID #20 tablet Comments: You were seen in the emergency department for a bad case of strep throat. antibiotics were sent electronically to [facility]. Please follow-up with your primary care provider and return to the emergency department if you have any new or worsening symptoms or other concerns.
[2023-05-03] MEDS ORDERED: AMOXICILLIN 250 MG CAPSULE PO STA (20:59)
[2023-05-03 21:19] VITALS: O2SAT 97
== END 2023-05-03 21:12 | disposition home or self-care (01) ==
LOC: ED 20:07
DX: J02.0 Streptococcal pharyngitis (principal); E11.9 Type 2 diabetes mellitus without complications; Z79.84 Long term (current) use of oral hypoglycemic drugs
CPT/HCPCS: 87430; 96372; 99283; A9270

== ENCOUNTER 2023-06-11 14:45 | Outpatient (CLI) | payer MEDICARE, MEDICAID ==
[2023-06-11 20:12] LABS: INFLUENZA A- RESP PCR PANEL NOT DETECTED; INFLUENZA B - RESP PCR PANEL NOT DETECTED; RSV- RESP PCR PANEL NOT DETECTED; SARS-CoV-2 -RESP PCR PANEL DETECTED
== END 2023-06-11 15:00 | disposition home or self-care (01) ==
LOC: LAB.N 14:45
PROVIDERS: ATTEND Family Medicine
DX: U07.1 COVID-19 (principal); J45.901 Unspecified asthma with (acute) exacerbation
CPT/HCPCS: 87637